=== PATIENT | female | born 1975 | race African-American/Black ===

== ENCOUNTER 2019-11-02 08:44 | Outpatient (CLI) | payer OTHER, SELFPAY ==
--- NOTE | ~2019-11-02 | MR_ITS ---
EXAMINATION: MR lumbar spine wo con DATE: 11/02/2019 09:47 INDICATION: Low back pain. TECHNIQUE: Magnetic resonance imaging (MRI) of the lumbar spine was performed without intravenous con trast. Sequences included sagittal T2-weighted FSE, sagittal T2-weighted FS FSE, sagittal T1-weighted FSE, and axial T2-weighted FSE. COMPARISON: Lumbar spine MRI 08/10/2012, radiographs 12/28/2016, chest 2 views 11/02/2012 FINDINGS: There is 12 degrees levoscoliosis of lumbar spine. S1 is a transitional segment. Vertebral body heights and intervertebral disc heights are normal. The distal spinal cord signal intensity is n ormal. The conus medullaris is at L1-L2. The following disc levels are specifically discussed: L1-L2: The disc does not extend beyond the endplate margin. There is mild bilateral facet joint osteo arthritis. There is no neural foraminal stenosis. There is no central canal stenosis. L2-L3: The disc does not extend beyond the endplate margin. There is moderate bilateral facet joint o steoarthritis. There is no neural foraminal stenosis. There is no central canal stenosis. L3-L4: The disc does not extend beyond the endplate margin. There is severe right and moderate left f acet joint osteoarthritis. There is mild bilateral neural foraminal stenosis. There is no central can al stenosis. L4-L5: There is a right foraminal protrusion. There is severe bilateral facet joint osteoarthritis. T here is mild bilateral neural foraminal stenosis. There is no central canal stenosis. L5-S1: The disc does not extend beyond the endplate margin. There is moderate right and severe left f acet joint osteoarthritis. There is mild bilateral neural foraminal stenosis. There is no central can al stenosis. IMPRESSION: 1. Mild lumbar spondylosis, stable from 08/10/2012. Reviewed, dictated and finalized at location A. OELECTRONICS ASSEMBLER
== END 2019-11-02 08:45 | disposition home or self-care (01) ==
PROVIDERS: Visit Provider Psychiatry & Neurology Neurology
DX: M47.896 Other spondylosis, lumbar region (principal)
CPT/HCPCS: 72148

== ENCOUNTER 2019-11-09 14:03 | Outpatient (CLI) | payer OTHER, SELFPAY ==
--- NOTE | ~2019-11-09 | US_ITS ---
EXAMINATION: US art doppler w press LE SAÚL DATE: 11/09/2019 15:16 INDICATION: Lower limb edema. Numbness and tingling in the legs. TECHNIQUE: Segmental pressures and plethysmographic and Doppler waveforms of the brachial and lower e xtremity arteries were obtained. COMPARISON: None. FINDINGS: Right and left brachial artery pressures were too high to measure. The right lower limb pressures could not be measured. Arterial Doppler waveforms are at least triphas ic from common femoral artery to the ankle. The left lower limb pressures could not be measured. Arterial Doppler waveforms are at least triphasi c from common femoral artery to the ankle. IMPRESSION: 1. Brachial pressures too high to measure. The patient was encouraged to go to the emergency departme nt. She refused the [facility] emergency department and stated she would go to [facility]. 2. Normal arterial waveforms in the lower limbs, but pressures could not be measured. Reviewed, dictated and finalized at location A. URIZER IMPRESSION: 1. Brachial pressures too high to measure. The patient was encouraged to go to the emergency department. She refused the [facility] emergency departmen t and stated she would go to [facility]. 2. Normal arterial waveforms in the lower limbs, but pressures could not be yesy sured.
== END 2019-11-09 14:04 | disposition home or self-care (01) ==
PROVIDERS: Visit Provider Psychiatry & Neurology Neurology
DX: R60.9 Edema, unspecified (principal)
CPT/HCPCS: 93923

== ENCOUNTER 2020-07-13 15:28 | Emergency (ER) | payer OTHER, SELFPAY ==
--- NOTE | ~2020-07-13 | XR_ITS ---
XR hip LT min 2V DATE: 07/13/2020 16:04 INDICATION: Fall. Left hip pain. TECHNIQUE: AP, lateral, crosstable lateral views of left hip COMPARISON: 06/07/2017 left hip FINDINGS: No fracture or dislocation, avascular necrosis or bone destruction. Mild left hip osteoarth ritis. IMPRESSION: Mild left hip osteoarthritis Reviewed, dictated and finalized at location A.
--- NOTE | 2020-07-13 15:30 | ED.GENADULT ---
HPI - General Adult General Chief complaint: Extremity Problem,Nontraumatic Stated complaint: Left Hip Pain Time Seen by Provider: 07/13/20 15:30 Source: patient Mode of arrival: ambulatory Limitations: no limitations History of Present Illness HPI narrative: 45-year-old female patient presents to the [facility] with complaints of left hip pain. Patient states about 3 days ago she slipped and fell landing on her left hip onto some hardwood. Patient states that since then she has been having pain when walking and states it hurts mostly when she is laying down at night trying to turn her when she goes to try and sit down on the toilet. Patient states that she did break her jaw and so she has had some Vicodin at home for the jaw pain that she has been taking. Patient denies any numbness or tingling down the leg. Denies any loss of bowel or bladder control. Patient states that she does have chronic low back pain due to a broken tailbone in the past that the pain that she has there is not from her recent fall. Related Data Home Medications Medication Instructions Recorded Confirmed alprazolam 1 mg PO DIRECTED 07/13/20 07/13/20 amlodipine 10 mg PO DAILY 07/13/20 07/13/20 buspirone 10 mg PO DAILY 07/13/20 07/13/20 clonidine HCl 0.1 mg PO DAILY 07/13/20 07/13/20 ergocalciferol (vitamin D2) 1,250 mcg PO DAILY 07/13/20 07/13/20 [Vitamin D2] hydrocodone-acetaminophen 1 tablet PO DIRECTED 07/13/20 07/13/20 olanzapine 5 mg PO DIRECTED 07/13/20 07/13/20 Allergies Allergy/AdvReac Type Severity Reaction Status Date / Time codeine Allergy Unknown ITCHING Verified 07/13/20 15:31 papaya Allergy Unknown ITCHING Verified 07/13/20 15:31 tramadol Allergy Unknown Nausea Verified 07/13/20 15:31 Review of Systems Review of Systems: Narrative: CONSTITUTIONAL: Denies fever, chills, or sweats. EYES: Denies visual changes, redness, or discharge. ENT: Denies rhinorrhea, congestion, sore throat, or otalgia. CARDIOVASCULAR: Denies chest pain, palpitations, or edema. RESPIRATORY: Denies cough or dyspnea. GASTROINTESTINAL: Denies abdominal pain, nausea, vomiting, or diarrhea. GENITOURINARY: Denies dysuria or hematuria. SKIN: Denies rash or itching. MUSCULOSKELETAL: Denies back pain, joint pain, or myalgia. Positive left hip pain NEUROLOGIC: Denies headache, numbness, or weakness. PSYCHIATRIC: Denies anxiety or depression. [facility] Past Medical History Medical History Anxiety Arthritis Asthma Bronchitis Depression Emphysema, unspecified GERD (gastroesophageal reflux disease) H/O: HTN (hypertension) Hypercholesteremia Peripheral neuropathy PTSD (post-traumatic stress disorder) Sleep apnea Surgical History Surgical History History of hysterectomy History of tonsillectomy Hx of tubal ligation Family History Family History Mother Hypertension Social History Social History Smoking status: Former smoker Alcohol intake: current Comments At the time of my signature I agree with nursing past medical history, surgical, social, and family history. There is no relevant family history pertinent to the presenting complaint. Exam Narrative: Exam Narrative: GENERAL: Well-appearing, well-nourished, and in no acute distress. HEAD: Normocephalic, atraumatic. EYES: PERRLA and EOMI. ENT: Nares clear, no rhinorrhea or epistaxis. Mucous membranes moist. NECK: Supple. No lymphadenopathy CHEST: Clear to auscultation. No respiratory distress. HEART: Regular rate and rhythm. No murmur heard. Normal peripheral pulses. ABDOMEN: Soft, nontender, nondistended, normal active bowel sounds. EXTREMITIES: Patient is able to ambulate with difficulty with pain, and limp left hip. No surface trauma, ecchymosis. no erythema, warmth. No deform
[2020-07-13 15:41] VITALS: BP 158/90; PULSE 73; RESP 16; TEMP 36.6; O2SAT 100
== END 2020-07-13 16:20 | disposition home or self-care (01) ==
PROVIDERS: Emergency Provider Nurse Practitioner Family
DX: M25.552 Pain in left hip (principal); M16.12 Unilateral primary osteoarthritis, left hip; Z87.891 Personal history of nicotine dependence; F41.9 Anxiety disorder, unspecified; M19.90 Unspecified osteoarthritis, unspecified site; J45.909 Unspecified asthma, uncomplicated; F32.9 Major depressive disorder, single episode, unspecified; K21.9 Gastro-esophageal reflux disease without esophagitis; I10 Essential (primary) hypertension; E78.00 Pure hypercholesterolemia, unspecified; G47.30 Sleep apnea, unspecified; G62.9 Polyneuropathy, unspecified
CPT/HCPCS: 73502; 99213; G0463

== ENCOUNTER 2020-08-09 06:35 | Outpatient (NON) | payer OTHER, SELFPAY ==
[2020-08-10 01:03] LABS: SARS-CoV-2 RNA PCR Negative
== END 2020-08-09 06:36 ==
LOC: ANHCOVIDDT 06:35
PROVIDERS: Visit Provider Physician Assistant
DX: Z20.828 Contact with and (suspected) exposure to other viral communicable diseases (principal)
CPT/HCPCS: 87635; C9803; U0003

== ENCOUNTER → 2021-01-15 06:44 | Outpatient (CLI) | payer OTHER, SELFPAY ==
[2021-01-15 18:26] LABS: SARS-CoV-2 RNA PCR Negative
== END ==
PROVIDERS: PCP Physician Assistant; Visit Provider Physician Assistant
DX: Z20.822 Contact with and (suspected) exposure to COVID-19 (principal); R09.89 Other specified symptoms and signs involving the circulatory and respiratory systems
CPT/HCPCS: C9803; U0003; U0005

== ENCOUNTER 2021-01-17 08:07 | Emergency (ER) | payer OTHER, SELFPAY ==
--- NOTE | ~2021-01-17 | XR_ITS ---
EXAMINATION: XR knee RT 3V DATE: 01/17/2021 08:33 INDICATION: Right knee pain. TECHNIQUE: 4 views of right knee were obtained. COMPARISON: Right knee radiographs 09/01/2019 FINDINGS: Bone alignment is normal. No fracture. There is mild tricompartmental osteoarthritis. No kn ee joint effusion. IMPRESSION: 1. Mild right knee osteoarthritis. Reviewed, dictated and finalized at location D.
[2021-01-17 08:18] VITALS: BP 132/79; PULSE 66; RESP 16; TEMP 36.4; O2SAT 100
--- NOTE | 2021-01-17 08:51 | ED.URI ---
HPI - URI/Sore Throat General Stated Complaint: Righ Knee Pain Related Data Home Medications Medication Instructions Recorded Confirmed alprazolam 1 mg PO DIRECTED 07/13/20 07/13/20 amlodipine 10 mg PO DAILY 07/13/20 07/13/20 buspirone 10 mg PO DAILY 07/13/20 07/13/20 clonidine HCl 0.1 mg PO DAILY 07/13/20 07/13/20 ergocalciferol (vitamin D2) 1,250 mcg PO DAILY 07/13/20 07/13/20 [Vitamin D2] olanzapine 5 mg PO DIRECTED 07/13/20 07/13/20 Allergies Allergy/AdvReac Type Severity Reaction Status Date / Time codeine Allergy Unknown ITCHING Verified 07/13/20 15:31 papaya Allergy Unknown ITCHING Verified 07/13/20 15:31 tramadol Allergy Unknown Nausea Verified 07/13/20 15:31 [facility] Past Medical History Medical History Anxiety Arthritis Asthma Bronchitis Depression Emphysema, unspecified GERD (gastroesophageal reflux disease) H/O: HTN (hypertension) Hypercholesteremia Peripheral neuropathy PTSD (post-traumatic stress disorder) Sleep apnea Surgical History Surgical History History of hysterectomy History of tonsillectomy Hx of tubal ligation Family History Family History Mother Hypertension Social History Social History Smoking status: Former smoker Alcohol intake: current Course Vital Signs Vital signs: Vital Signs Temperature 97.6 F 01/17/21 08:18 Pulse Rate 66 01/17/21 08:18 Respiratory Rate 16 01/17/21 08:18 Blood Pressure 132/79 01/17/21 08:18 Pulse Oximetry 100 01/17/21 08:18 Temperature 97.6 F 01/17/21 08:18 Pulse Rate 66 01/17/21 08:18 Respiratory Rate 16 01/17/21 08:18 Blood Pressure 132/79 01/17/21 08:18 Pulse Oximetry 100 01/17/21 08:18 Discharge Plan Discharge Clinical Impression: Injury of knee, right Qualifiers: Encounter type: initial encounter Qualified Code(s): S89.91XA - Unspecified injury of right lower leg, initial encounter Patient Disposition: Home, Self-Care Condition: Stable Instructions: Knee Pain (ED) Additional Instructions: Your x-ray is negative for anything concerning today. Continue Aleve or ibuprofen at home for pain. Continue ice and elevation. Follow-up with your PCP in 1 to 2 weeks if symptoms are not improving. Your blood pressure was elevated above 120/80 today at Urgent Care. This puts you above the threshold for follow up. Please schedule a followup visit with your personal physician as soon as possible, for further evaluation and treatment. Even blood pressure exceeding 120/80 may indicate pre-hypertension. Patient Language: Belarusian Prescriptions: No Action clonidine HCl 0.1 mg tablet 0.1 mg PO DAILY RF: 0 alprazolam 1 mg tablet 1 mg PO DIRECTED RF: 0 olanzapine 5 mg tablet 5 mg PO DIRECTED RF: 0 amlodipine 10 mg tablet 10 mg PO DAILY RF: 0 buspirone 10 mg tablet 10 mg PO DAILY RF: 0 ergocalciferol (vitamin D2) [Vitamin D2] 1,250 mcg (50,000 unit) capsule 1,250 mcg PO DAILY RF: 0 hydrocodone-acetaminophen 7.5-325 mg tablet 1 tablet PO Q8H PRN (Reason: pain) Qty: 40 RF: 0 Follow-up/Referrals: UNKNOWN,DOCTOR [Primary Care Provider] - Time of Disposition: 08:53
--- NOTE | 2021-01-17 08:57 | ED.LOWEXIN ---
HPI - Extremity Injury (Lower) General Chief Complaint: Extremity Injury, Lower Stated Complaint: Righ Knee Pain Time Seen by Provider: 01/17/21 08:21 Source: patient Mode of arrival: ambulatory Limitations: no limitations History of Present Illness HPI Narrative: Patient presents today complaining of right knee pain. She slipped on a rug yesterday and fell onto her right knee. States the pain occasionally radiates to the posterior knee and up the posterior thigh. She currently rates her pain 4/10. Reports there is a small area to the patella that is numb to the touch. She has been taking ibuprofen and applying ice with relief. She also reports she took a CBD bath . Pain does increase with ambulation. Related Data Home Medications Medication Instructions Recorded Confirmed alprazolam 1 mg PO DIRECTED 07/13/20 07/13/20 amlodipine 10 mg PO DAILY 07/13/20 07/13/20 buspirone 10 mg PO DAILY 07/13/20 07/13/20 clonidine HCl 0.1 mg PO DAILY 07/13/20 07/13/20 ergocalciferol (vitamin D2) 1,250 mcg PO DAILY 07/13/20 07/13/20 [Vitamin D2] olanzapine 5 mg PO DIRECTED 07/13/20 07/13/20 Allergies Allergy/AdvReac Type Severity Reaction Status Date / Time codeine Allergy Unknown ITCHING Verified 01/17/21 09:12 papaya Allergy Unknown ITCHING Verified 01/17/21 09:12 tramadol Allergy Unknown Nausea Verified 01/17/21 09:12 Review of Systems Review of Systems: Narrative: CONSTITUTIONAL: Denies body aches, fever, chills, or sweats. EYES: Denies visual changes, redness, or discharge. ENT: Denies rhinorrhea, congestion, sore throat, or otalgia. CARDIOVASCULAR: Denies chest pain, palpitations, or edema. RESPIRATORY: Denies cough or dyspnea. GASTROINTESTINAL: Denies abdominal pain, nausea, vomiting, or diarrhea. GENITOURINARY: Denies dysuria or hematuria. SKIN: Denies rash, itching, or wounds. MUSCULOSKELETAL: Denies back pain, or myalgia.+ Right knee injury NEUROLOGIC: Denies headache, tingling, or weakness. + Area of numbness to the right knee PSYCH: Denies depression or anxiety. [facility] Past Medical History Medical History Anxiety Arthritis Asthma Bronchitis Depression Emphysema, unspecified GERD (gastroesophageal reflux disease) H/O: HTN (hypertension) Hypercholesteremia Peripheral neuropathy PTSD (post-traumatic stress disorder) Sleep apnea Surgical History Surgical History History of hysterectomy History of tonsillectomy Hx of tubal ligation Family History Family History Mother Hypertension Social History Social History Smoking status: Former smoker Alcohol intake: current Comments At time of signature, I have reviewed and agree with nursing past medical, surgical, social and family history unless otherwise noted. Please see nursing chart for further information. There is no relevant family history pertinent to the presenting complaint Exam Narrative: Exam Narrative: GENERAL: Well-appearing, well-nourished, and in no acute distress. HEAD: Normocephalic, atraumatic. EYES: EOMI. No redness or drainage. Conjunctivae normal. ENT: Mucous membranes pink and moist. NECK: Normal AROM. Supple. No lymphadenopathy. CHEST: No respiratory distress. EXTREMITIES: Right knee: Tenderness about the right knee joint. No bony tenderness to the patella. No edema noted. Patient does have some superficial numbness noted to the patella area. Distal sensation intact. Capillary refill normal. AROM full with mild increased pain. SKIN: Warm, dry, no rash. Capillary refill normal. Normal skin turgor. NEURO: No focal deficits. Alert and oriented x3. Gait steady. PSYCH: Normal affect. No signs of depression or anxiety. Course Vital Signs Vital signs: Vital Signs Temperature 97.6 F 01/17/
== END 2021-01-17 09:10 | disposition home or self-care (01) ==
PROVIDERS: Emergency Provider Nurse Practitioner
DX: S89.91XA Unspecified injury of right lower leg, initial encounter (principal); W18.09XA Striking against other object with subsequent fall, initial encounter; M19.90 Unspecified osteoarthritis, unspecified site; K21.9 Gastro-esophageal reflux disease without esophagitis; I10 Essential (primary) hypertension; E78.00 Pure hypercholesterolemia, unspecified; G62.9 Polyneuropathy, unspecified; G47.30 Sleep apnea, unspecified; F41.9 Anxiety disorder, unspecified; F32.9 Major depressive disorder, single episode, unspecified; Z87.891 Personal history of nicotine dependence
CPT/HCPCS: 73562; 99213; G0463

== ENCOUNTER → 2021-04-25 06:50 | Outpatient (CLI) | payer OTHER, SELFPAY ==
[2021-04-25 18:53] LABS: SARS-CoV-2 RNA PCR Negative
== END ==
PROVIDERS: PCP Physician Assistant; Visit Provider Physician Assistant
DX: Z20.822 Contact with and (suspected) exposure to COVID-19 (principal); B34.9 Viral infection, unspecified
CPT/HCPCS: C9803; U0003; U0005

== ENCOUNTER 2021-08-06 09:27 | Outpatient (CLI) | payer OTHER, SELFPAY ==
--- NOTE | ~2021-08-06 | US_ITS ---
EXAMINATION: US pelvic complete w TV DATE: 08/06/2021 10:40 INDICATION: Pelvic and perineal pain. Status post hysterectomy. Comparison:No prior studies for comparison. TECHNIQUE: Multiple transabdominal and endovaginal sonographic images of the pelvis performed. FINDINGS: The uterus is surgically absent. The right ovary measures 1.9 x 1.7 x 1.5 cm and the left o vary measures 2 x 1.5 x 1.7 cm. There are small follicles in each ovary. Normal doppler signal in artemio th ovaries. There is no free fluid in the pelvis. There are no abnormal masses seen on either side. IMPRESSION: 1. Unremarkable pelvic ultrasound post hysterectomy. Reviewed, dictated and finalized at location A. SHOP MANAGER
== END 2021-08-06 09:28 | disposition home or self-care (01) ==
PROVIDERS: PCP Physician Assistant; Visit Provider Physician Assistant
DX: R10.2 Pelvic and perineal pain (principal)
CPT/HCPCS: 76830; 76856

== ENCOUNTER 2022-02-19 09:00 | Outpatient (RCR) | payer OTHER, SELFPAY ==
--- NOTE | 2022-01-27 09:33 | PTOPEVAL ---
PHYSICAL THERAPY EVALUATION AND PLAN OF CARE 01-27-22 Thank you for referring Aamnda Orozco to [facility] for the diagnosis of low back pain. Amanda is scheduled to be seen for therapy? 2 x/week for 3 weeks. Treatment plan includes aquatic therapy, for the buoyancy effects of the water and allows for ease of movement and decrease stress to the spine. Please review, sign, date and return this plan of care ROSE. I agree with and certify that the following plan of care is medically necessary. Referring Physician Date Attending Provider: DARLINE Guo Past Medical History Source of Past Medical History Recalled from Previous Visit, Confirmed with Patient/Family Neurological History Hx Migraine Yes: on meds from neurologist Hx Other Neurological Disorders Yes: peripheral neuropathy in legs Cardiovascular History Hx Hypercholesterolemia Yes Hx Hypertension Yes: meds Hx Other Cardiac Disorders Yes: cardiac cath due to valve problems Respiratory History Hx Asthma Yes Hx Emphysema Yes Hx Sleep Apnea Yes Gastrointestinal History Hx Gastroesophageal Reflux Disease Yes Musculoskeletal History Hx Arthritis Yes: all over body Hx Back Pain Yes Hx Fractures Yes: nose jaw Hx Orthopedic Surgery Yes: rt hand, nose Hx Other Musculoskeletal Disorders Yes: chronic back, neck, B ankle and B shoulder pain Reproductive History Hx Tubal Ligation Yes Psychosocial History Hx Anxiety Yes Hx Depression Yes Hx Post Traumatic Stress Disorder Yes Other History Hx Other Medical Conditions Yes: obesity, has lost about 20# Evaluation Information Diagnosis low back pain Onset about one year Subjective Information gradual increase in back pain, Query Text:As Reported By Patient/ more since covid and at home Family more; when had therapy before, really liked the water and wants to do that again, cannot do land therapy--hurts too much and cannot tolerate it; has an inground pool at home and cannot use yet; likes the warm water, helps her back and loosens the muscles; frustrated about continued pain and no one understands how much it hurts her; Diagnostic Tests X-Rays For This Problem Yes: back xrays after fall
--- NOTE | 2022-02-03 10:49 | PCPTNOTE ---
Patient called & cancelled scheduled appointment this date due to transportation for her appointment was involved in an accident.
--- NOTE | 2022-02-19 09:22 | PCPTNOTE ---
pt did not show for today's reevaluation appt;
--- NOTE | 2022-03-10 10:11 | PCPTNOTE ---
PHYSICAL THERAPY DISCHARGE REPORT 03-10-22 Attending Provider: DARLINE Guo Patient:Amanda Orozco Date of :1975 Ms. Orozco has received 4 PT sessions, from January 27 to , for the diagnosis of low back pain. She called and canceled one appointment and did not show for one appointment; She will be discharged at this time. The goals were not addressed. Thank you for referring this patient to [facility]. Please review, sign, date and return this discharge summary ROSE. I have been updated about the patient's current status and I agree with discharge from the above service at this time. Referring Physician Date
== END 2022-03-10 14:39 | disposition home or self-care (01) ==
LOC: ANHPT 09:00
PROVIDERS: PCP Physician Assistant; Visit Provider Physician Assistant
DX: M54.50 Low back pain, unspecified (principal)
CPT/HCPCS: 97113; 97161

== ENCOUNTER 2022-03-23 12:11 | Emergency (ER) | payer OTHER, SELFPAY ==
[2022-03-23 12:30] VITALS: BP 139/85; PULSE 97; RESP 20; TEMP 36.7; O2SAT 98
--- NOTE | 2022-03-23 12:31 | ED.DENTAL ---
HPI - Dental/Oral General Chief complaint: Dental/Oral Stated complaint: Tooth Pain Time Seen by Provider: 03/23/22 12:31 Source: patient Mode of arrival: ambulatory History of Present Illness HPI Narrative: 46-year-old female presented for complaint of right upper dental pain for about 3 days. States she thinks she has a dental abscess, she has had this in the past. She endorses something popped inside her mouth and she felt drainage with foul taste at the tooth. She was unable to get into the dentist for about 2 months. She states she was told it needed to be pulled but elected to only have the cavity filled at her last appointment. She currently denies fever, nausea, vomiting. She states pain level is 0 at this time, but is worse at night. Also states she has a skin lesion to left cheek that swells at times. MD Complaint: tooth pain Related Data Home Medications Medication Instructions Recorded Confirmed alprazolam 1 mg tablet 1 mg PO DIRECTED 07/13/20 03/23/22 amlodipine 10 mg tablet 10 mg PO DAILY 07/13/20 03/23/22 buspirone 10 mg tablet 10 mg PO DAILY 07/13/20 03/23/22 clonidine HCl 0.1 mg tablet 0.1 mg PO DAILY 07/13/20 03/23/22 ergocalciferol (vitamin D2) 1,250 1,250 mcg PO DAILY 07/13/20 03/23/22 mcg (50,000 unit) capsule (Vitamin D2) olanzapine 5 mg tablet 5 mg PO DIRECTED 07/13/20 03/23/22 albuterol sulfate 90 mcg/actuation 2 inh inhalation DIRECTED 03/23/22 03/23/22 aerosol inhaler fluticasone propionate 110 2 inh inhalation DAILY 03/23/22 03/23/22 mcg/actuation HFA aerosol inhaler (Flovent HFA) gabapentin 400 mg capsule 1 cap PO DIRECTED 03/23/22 03/23/22 hydrochlorothiazide 25 mg tablet 1 tablet PO DAILY 03/23/22 03/23/22 losartan 100 mg tablet 1 tablet PO DAILY 03/23/22 03/23/22 Allergies Allergy/AdvReac Type Severity Reaction Status Date / Time codeine Allergy Unknown ITCHING Verified 03/23/22 12:16 papaya Allergy Unknown ITCHING Verified 03/23/22 12:16 tramadol Allergy Unknown Nausea Verified 03/23/22 12:16 Review of Systems Review of Systems: CONSTITUTIONAL: Denies body aches, fever, chills ENT: Denies rhinorrhea, congestion, sore throat, or otalgia. Reports dental pain CARDIOVASCULAR: Denies chest pain, palpitations RESPIRATORY: Denies cough or dyspnea. SKIN: Denies rash, itching, or wounds. MUSCULOSKELETAL: Denies myalgia. NEUROLOGIC: Denies headache, numbness, tingling, or weakness. [facility] Past Medical History Medical History Anxiety Arthritis Asthma Bronchitis Depression Emphysema, unspecified GERD (gastroesophageal reflux disease) H/O: HTN (hypertension) Hypercholesteremia Peripheral neuropathy PTSD (post-traumatic stress disorder) Sleep apnea Surgical History Surgical History History of hysterectomy History of tonsillectomy Hx of tubal ligation Family History Family History Mother Hypertension Social History Social History Smoking status: Current every day smoker Alcohol intake: former Comments At time of signature, I have reviewed and agree with nursing past medical, surgical, social and family history unless otherwise noted. Please see nursing chart for further information. There is no relevant family history pertinent to the presenting complaint Exam Narrative: GENERAL: Appears in pain; no acute distress. Talkative HEAD: Normocephalic, atraumatic. EYES: EOMI. No redness or drainage. Conjunctivae normal. ENT: Dental pain location of Mucous membranes pink and moist. CHEST: No respiratory distress. Clear to auscultation. HEART: Regular rate and rhythm. No murmur appreciated. SKIN: Warm, dry; Left cheek with round lesion approx 3mm diameter no active drainage or fluctuance; Normal skin turgor. NEURO: No f
== END 2022-03-23 12:54 | disposition home or self-care (01) ==
PROVIDERS: Emergency Provider Nurse Practitioner Family; PCP Physician Assistant
DX: K04.7 Periapical abscess without sinus (principal); L98.9 Disorder of the skin and subcutaneous tissue, unspecified; M19.90 Unspecified osteoarthritis, unspecified site; K21.9 Gastro-esophageal reflux disease without esophagitis; G62.9 Polyneuropathy, unspecified; E78.00 Pure hypercholesterolemia, unspecified; I10 Essential (primary) hypertension; G47.30 Sleep apnea, unspecified; J45.909 Unspecified asthma, uncomplicated; F41.9 Anxiety disorder, unspecified; F32.9 Major depressive disorder, single episode, unspecified
CPT/HCPCS: 99213; G0463

== ENCOUNTER 2022-04-13 14:52 | Emergency (ER) | payer OTHER, SELFPAY ==
[2022-04-13 15:08] VITALS: BP 116/61; PULSE 75; RESP 16; TEMP 36.8; O2SAT 98
--- NOTE | 2022-04-13 15:29 | ED.GENADULT ---
HPI - General Adult General Chief complaint: Extremity Problem,Nontraumatic Stated complaint: Swolle Legs Time Seen by Provider: 04/13/22 15:29 Source: patient Mode of arrival: ambulatory Limitations: no limitations History of Present Illness HPI narrative: 46 y/o female presented for c/o bilateral lower extremity swelling intermittently since 03/27/22. Denies associated sob, fatigue, chest pain, palpitations, decreased urinary output, nausea or vomiting. States her PCP instructed her to go to the ER. Taking hctz. Denies salt increase. Denies hx CHF. Related Data Home Medications Medication Instructions Recorded Confirmed alprazolam 1 mg tablet 1 mg PO DIRECTED 07/13/20 04/13/22 amlodipine 10 mg tablet 10 mg PO DAILY 07/13/20 04/13/22 buspirone 10 mg tablet 10 mg PO DAILY 07/13/20 04/13/22 clonidine HCl 0.1 mg tablet 0.1 mg PO DAILY 07/13/20 04/13/22 ergocalciferol (vitamin D2) 1,250 1,250 mcg PO DAILY 07/13/20 04/13/22 mcg (50,000 unit) capsule (Vitamin D2) olanzapine 5 mg tablet 5 mg PO DIRECTED 07/13/20 04/13/22 albuterol sulfate 90 mcg/actuation 2 inh inhalation DIRECTED 03/23/22 04/13/22 aerosol inhaler fluticasone propionate 110 2 inh inhalation DAILY 03/23/22 04/13/22 mcg/actuation HFA aerosol inhaler (Flovent HFA) gabapentin 400 mg capsule 1 cap PO DIRECTED 03/23/22 04/13/22 hydrochlorothiazide 25 mg tablet 1 tablet PO DAILY 03/23/22 04/13/22 losartan 100 mg tablet 1 tablet PO DAILY 03/23/22 04/13/22 Allergies Allergy/AdvReac Type Severity Reaction Status Date / Time codeine Allergy Unknown ITCHING Verified 04/13/22 15:14 papaya Allergy Unknown ITCHING Verified 04/13/22 15:14 tramadol Allergy Unknown Nausea Verified 04/13/22 15:14 Review of Systems Review of Systems: CONSTITUTIONAL: Denies body aches, fever, chills, or sweats. EYES: Denies visual changes, redness, or discharge. ENT: Denies rhinorrhea, congestion, sore throat, or otalgia. CARDIOVASCULAR: Denies chest pain, palpitations, or edema. RESPIRATORY: Denies cough or dyspnea. GASTROINTESTINAL: Denies abdominal pain, nausea, vomiting, or diarrhea. GENITOURINARY: Denies dysuria or hematuria. SKIN: Denies rash, itching, or wounds. MUSCULOSKELETAL: Denies back pain, joint pain, or myalgia. NEUROLOGIC: Denies headache, numbness, tingling, or weakness. PSYCH: Denies depression or anxiety. All systems reviewed & are unremarkable except as noted in HPI and below PMFSH Past Medical History Medical History Anxiety Arthritis Asthma Bronchitis Depression Emphysema, unspecified GERD (gastroesophageal reflux disease) H/O: HTN (hypertension) Hypercholesteremia Peripheral neuropathy PTSD (post-traumatic stress disorder) Sleep apnea Surgical History Surgical History History of hysterectomy History of tonsillectomy Hx of tubal ligation Family History Family History Mother Hypertension Social History Social History Smoking status: Current every day smoker Alcohol intake: former Comments At time of signature, I have reviewed and agree with nursing past medical, surgical, social and family history unless otherwise noted. Please see nursing chart for further information. There is no relevant family history pertinent to the presenting complaint Exam Narrative: GENERAL: Well-appearing EYES: EOMI. Conjunctivae normal. ENT: Mucous membranes pink and moist. CHEST: No respiratory distress. Clear to auscultation. HEART: Regular rate and rhythm. No murmur appreciated. Normal peripheral pulses. ABDOMEN: Soft, nontender, nondistended, normal active bowel sounds. EXTREMITIES: Normal range of motion. Approx 3+ ankle and pedal edema bilaterally up to mid calf, skin is tight and tender, no redness or open wou
== END 2022-04-13 16:05 | disposition home or self-care (01) ==
PROVIDERS: Emergency Provider Nurse Practitioner Family; PCP Physician Assistant
DX: R22.43 Localized swelling, mass and lump, lower limb, bilateral (principal); F17.200 Nicotine dependence, unspecified, uncomplicated; M19.90 Unspecified osteoarthritis, unspecified site; K21.9 Gastro-esophageal reflux disease without esophagitis; I10 Essential (primary) hypertension; E78.00 Pure hypercholesterolemia, unspecified; G47.30 Sleep apnea, unspecified; G62.9 Polyneuropathy, unspecified; F41.9 Anxiety disorder, unspecified; F32.A Depression, unspecified; J45.909 Unspecified asthma, uncomplicated; J43.9 Emphysema, unspecified
CPT/HCPCS: 99212; G0463

== ENCOUNTER 2022-05-24 08:21 | Emergency (ER) | payer OTHER, SELFPAY ==
[2022-05-24 08:32] VITALS: BP 151/95; PULSE 114; RESP 16; TEMP 37.2; O2SAT 99
[2022-05-24 08:33] VITALS: BP 151/95; PULSE 114; RESP 16; TEMP 37.2; O2SAT 99
--- NOTE | 2022-05-24 09:02 | ED.DENTAL ---
HPI - Dental/Oral General Chief complaint: Dental/Oral Stated complaint: gum pain Source: patient Mode of arrival: ambulatory Limitations: no limitations History of Present Illness HPI Narrative: 47 year old female presents to [facility] with complaints of right upper tooth pain since yesterday. Patient reports that she has had dental pain and swelling since getting a deep clean to her teeth at her dental office in 02/2022. Patient was evaluated here in late February and given Penicillin 500mg BID X 10 days for a dental abscess. Patient reports that she had a low grade fever last night. Patient denies headache, dizziness, nausea or vomiting. MD Complaint: tooth pain Location: Tooth # (4) Onset (ago): day(s) (1) Duration: constant Relieving factors: nothing Exacerbating factors: chewing Related Data Home Medications Medication Instructions Recorded Confirmed alprazolam 1 mg tablet 1 mg PO DIRECTED 07/13/20 05/24/22 amlodipine 10 mg tablet 10 mg PO DAILY 07/13/20 05/24/22 buspirone 10 mg tablet 10 mg PO DAILY 07/13/20 05/24/22 clonidine HCl 0.1 mg tablet 0.1 mg PO DAILY 07/13/20 05/24/22 ergocalciferol (vitamin D2) 1,250 1,250 mcg PO DAILY 07/13/20 05/24/22 mcg (50,000 unit) capsule (Vitamin D2) olanzapine 5 mg tablet 5 mg PO DIRECTED 07/13/20 05/24/22 albuterol sulfate 90 mcg/actuation 2 inh inhalation DIRECTED 03/23/22 05/24/22 aerosol inhaler fluticasone propionate 110 2 inh inhalation DAILY 03/23/22 05/24/22 mcg/actuation HFA aerosol inhaler (Flovent HFA) gabapentin 400 mg capsule 1 cap PO DIRECTED 03/23/22 05/24/22 hydrochlorothiazide 25 mg tablet 1 tablet PO DAILY 03/23/22 05/24/22 losartan 100 mg tablet 1 tablet PO DAILY 03/23/22 05/24/22 sertraline 50 mg tablet 50 mg PO DAILY 05/24/22 05/24/22 Allergies Allergy/AdvReac Type Severity Reaction Status Date / Time papaya Allergy Unknown ITCHING Verified 05/24/22 08:32 Review of Systems Constitutional: Constitutional: Denies chills, Denies fatigue and Denies fever(s) ENT: Denies vertigo and Denies dizziness Comments: right upper tooth pain and right facial cheek swelling Cardiovascular: Cardiovascular: Denies chest pain Respiratory: Respiratory: Denies cough, Denies dyspnea and Denies wheezing Gastrointestinal: Gastrointestinal: Denies diarrhea, Denies nausea and Denies vomiting Integumentary/Breasts: Skin/Breast: Denies rash PMFSH Past Medical History Medical History Anxiety Arthritis Asthma Bronchitis Depression Emphysema, unspecified GERD (gastroesophageal reflux disease) H/O: HTN (hypertension) Hypercholesteremia Peripheral neuropathy PTSD (post-traumatic stress disorder) Sleep apnea Surgical History Surgical History History of hysterectomy History of tonsillectomy Hx of tubal ligation Family History Family History Mother Hypertension Social History Social History Smoking status: Current every day smoker Alcohol intake: former Exam Const: General: healthy appearing Nutritional Appearance: well nourished Orientation/consciousness: patient oriented x3 Limitations: no limitations HENMT: Mouth: Yes Normal oral and palatal mucosa present, Yes moist mucous membranes and Yes Abnormal oral and palatal mucosa present Teeth and gingiva: abnormal tooth and associated gingiva upper right tender Throat: uvula midline Other: pain and swelling noted surrounding tooth # 4; THere is no obvious abscess noted. There is also mild swelling noted to right facial cheek Neck: Neck: normal visual inspection Resp: Effort & Inspection: normal respiratory effort and not labored Auscultation: clear to auscultation bilaterally Cardio: Rate: regular rate Rhythm: regular rhythm Heart sounds: no murmurs Skin:
== END 2022-05-24 09:23 | disposition home or self-care (01) ==
PROVIDERS: Emergency Provider Nurse Practitioner Family
DX: K08.89 Other specified disorders of teeth and supporting structures (principal); F17.200 Nicotine dependence, unspecified, uncomplicated; M19.90 Unspecified osteoarthritis, unspecified site; J45.909 Unspecified asthma, uncomplicated; K21.9 Gastro-esophageal reflux disease without esophagitis; I10 Essential (primary) hypertension; E78.00 Pure hypercholesterolemia, unspecified; G62.9 Polyneuropathy, unspecified; G47.30 Sleep apnea, unspecified; J43.9 Emphysema, unspecified; F41.9 Anxiety disorder, unspecified; F32.A Depression, unspecified
CPT/HCPCS: 99213; G0463

== ENCOUNTER 2022-07-28 15:30 | Outpatient (RCR) | payer OTHER, SELFPAY ==
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
--- NOTE | 2022-07-28 17:00 | PTOPREEVAL ---
Assessment and note entered by Xu Rea, PT Evaluation Information Assessment Status Re-evaluation Diagnosis low back pain Onset 2014 Subjective Information Patient reports she has been faithfully doing her exercises and can do her TENS unit at home. She has bought a romanian ball and finds relief from back pain when she does that. Unfortunately she keeps on having falls on her knees and is still a big fall risk. Reported Pain Level Pain Score 3,3: Self Report Assessment PT Clinical Summary Patient is a 47 year old patient coming to the clinic for low back pain. She has made 8 visits since initial evaluation on 05/25/22. Was unable to come in for May. secondary to COVID and knee pain. Has been showing good form with exercises and participating in aquatic and land based therapy. Patient appears to be wanting to make improvements, but secondary to all of the issues from her back I think it would be prudent to get an MRI along with continuing physical therapy. Plan of Care Interventions Aquatic Therapy,Electrical Stimulation,Gait Training,Hot Pack/Cold Pack,Manual Therapy,Neuro Re-education,Patient/Caregiver Education,Therapeutic Activities,Therapeutic Exercise,Ultrasound PT Services Indicated Yes Treatment Frequency and 2x/wk for 4 weeks Duration These treatments will address the objective and functional deficits as defined above. The patient will be advanced safely and appropriately in order for the patient to progress towards his/her prior level of function. Additional exercises will be introduced and as well as a comprehensive home exercise program upon discharge, if needed, ?to ensure carryover of functional gains achieved in the clinic. This treatment plan has been reviewed and agreement upon by the patient.
--- NOTE | 2022-10-01 14:40 | PCPTNOTE ---
Admitting Provider: Attending Provider: Lizeth Lima, DARLINE Patient:Amanda Orozco Date of :1975 Patient has not returned for any further treatments since 07/28/2022, therefore (he/she) will be discharged at this time. Patient?s initial visit was on 06/04/2022 10:30 and (he/she) had a total of 8___ visits. Since that last visit she has received new orders for more physical therapy. The goals have been partially met. Thank you for referring this patient to [facility]. Please review, sign, date and return this discharge summary ROSE. I have been updated about the patient's current status and I agree with discharge from the above service at this time. Referring Physician Date
== END 2022-09-02 23:59 | disposition home or self-care (01) ==
LOC: ANHPT 15:30
PROVIDERS: Referring Provider Physician Assistant; Visit Provider Physician Assistant
DX: M54.50 Low back pain, unspecified (principal)
CPT/HCPCS: 97014; 97110; 97113; 97162; 97530; G0283

== ENCOUNTER 2022-10-28 08:58 | Emergency (ER) | payer OTHER, SELFPAY ==
[2022-10-28 09:12] VITALS: BP 168/107; PULSE 109; RESP 16; TEMP 36.9; O2SAT 98
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
--- NOTE | 2022-10-30 11:01 | ED.DENTAL ---
HPI - Dental/Oral General Chief complaint: Dental/Oral Stated complaint: Dental Pain Time Seen by Provider: 10/28/22 09:14 Source: patient Mode of arrival: ambulatory Limitations: no limitations History of Present Illness HPI Narrative: 47 yo F presents with c/o R upper dental pain for several months. States she has been seen by a dentist for this issue. pt thinks a needle was left in her gums after a dental procedure. Followed up with another dentist and had panorex and was told maybe something there . pt has not followed up with her PCP to get additional imaging but states a one point the tip of the needle was coming out . Today she has pain and swelling. afebrile. Requesting antibiotic and tramadol. All systems reviewed and negative except as noted above. Related Data Home Medications Medication Instructions Recorded Confirmed alprazolam 1 mg tablet 1 mg PO DIRECTED 07/13/20 05/24/22 amlodipine 10 mg tablet 10 mg PO DAILY 07/13/20 05/24/22 buspirone 10 mg tablet 10 mg PO DAILY 07/13/20 05/24/22 clonidine HCl 0.1 mg tablet 0.1 mg PO DAILY 07/13/20 05/24/22 ergocalciferol (vitamin D2) 1,250 1,250 mcg PO DAILY 07/13/20 05/24/22 mcg (50,000 unit) capsule (Vitamin D2) olanzapine 5 mg tablet 5 mg PO DIRECTED 07/13/20 05/24/22 albuterol sulfate 90 mcg/actuation 2 inh inhalation DIRECTED 03/23/22 05/24/22 aerosol inhaler fluticasone propionate 110 2 inh inhalation DAILY 03/23/22 05/24/22 mcg/actuation HFA aerosol inhaler (Flovent HFA) gabapentin 400 mg capsule 1 cap PO DIRECTED 03/23/22 05/24/22 hydrochlorothiazide 25 mg tablet 1 tablet PO DAILY 03/23/22 05/24/22 losartan 100 mg tablet 1 tablet PO DAILY 03/23/22 05/24/22 sertraline 50 mg tablet 50 mg PO DAILY 05/24/22 05/24/22 Allergies Allergy/AdvReac Type Severity Reaction Status Date / Time papaya Allergy Unknown ITCHING Verified 05/24/22 08:32 Review of Systems Review of Systems: CONSTITUTIONAL: Denies fever, chills, or sweats. EYES: Denies visual changes, redness, or discharge. ENT: Denies rhinorrhea, congestion, sore throat, or otalgia. Reports right upper dental pain. CARDIOVASCULAR: Denies chest pain, palpitations, or edema. RESPIRATORY: Denies cough or dyspnea. GASTROINTESTINAL: Denies abdominal pain, nausea, vomiting, or diarrhea. GENITOURINARY: Denies dysuria or hematuria. SKIN: Denies rash or itching. MUSCULOSKELETAL: Denies back pain, joint pain, or myalgia. NEUROLOGIC: Denies headache, numbness, or weakness. PSYCHIATRIC: Denies anxiety or depression. All other systems reviewed are negative, except as documented in HPI. [facility] Past Medical History Medical History Anxiety Arthritis Asthma Bronchitis Depression Emphysema, unspecified GERD (gastroesophageal reflux disease) H/O: HTN (hypertension) Hypercholesteremia Peripheral neuropathy PTSD (post-traumatic stress disorder) Sleep apnea Surgical History Surgical History History of hysterectomy History of tonsillectomy Hx of tubal ligation Family History Family History Mother Hypertension Social History Social History Smoking status: Current every day smoker Alcohol intake: former Comments At time of signature, agree with nursing past medical, surgical, social and family history. There is no relevant family history pertinent to the presenting complaint. Exam Narrative: GENERAL: This is a well-nourished, well-developed patient, in no apparent distress. HEAD: normocephalic, atraumatic. EYES: PERRL. Sclera clear/white. Vision is grossly intact. EARS: External ears normal NOSE: External nose normal MOUTH: swelling and tenderness to gumline above tooth #4 and #5. no fluctuance. mild facial swelling noted. NECK: Neck supple, non-tender without lymphade
== END 2022-10-28 09:41 | disposition home or self-care (01) ==
PROVIDERS: Emergency Provider Nurse Practitioner Family
DX: K04.7 Periapical abscess without sinus (principal); F41.9 Anxiety disorder, unspecified; M19.90 Unspecified osteoarthritis, unspecified site; J45.909 Unspecified asthma, uncomplicated; F32.A Depression, unspecified; K21.9 Gastro-esophageal reflux disease without esophagitis; I10 Essential (primary) hypertension; G62.9 Polyneuropathy, unspecified
CPT/HCPCS: 99213; G0463

== ENCOUNTER 2022-10-29 08:00 | Outpatient (RCR) | payer OTHER, SELFPAY ==
--- NOTE | 2022-10-01 15:19 | PTOPEVAL1 ---
Assessment and note entered by Pat Hartmann, PT Evaluation Information Assessment Status Evaluation Diagnosis L knee pain and low back pain Onset April 2022 Subjective Information chronic pain in L knee- bone on bone; more pain since April; have fallen 3 times in past 2 months, knee hurts, gives out and fall down; afraid I will fall again; have anxiety and afraid to fall again; awhile back, dr wanted to do surgery on my knee, but insurance changed and not authorize surgery; to have MRI of back next week; continues to have back pain; Reported Pain Level Pain Score Self Report L knee Additional Pain Score Comments pain in past week 3-07/06 L knee, constant pain, shoots up lateral thigh; like under knee cap; increase pain with stairs; with sleeping gets stuck in bent position and cannot straighten it out; awaken 3-4x/night with pain in knee; use pillow between knees with sleeping; decrease pain with TENS, heat- use about 2x/day; use muscle cream- not really help anymore, pain is deeper in knee; have swelling in her knee; Assessment PT Clinical Summary Amanda has orders for low back and L knee pain; she wants to start on the knee treatment. A lumbar MRI is scheduled for next week. She reports chronic pain in her L knee and history includes L foot surgery, which still has pain. Decreased sleeping tolerance and walking. With the evaluation, she is guarded with the knee and would not allow me to touch her knee or look at it, would not remove her pants leg. She has decreased knee flexion and extension ROM and strength with pain; decreased walking tolerance with limp on L LE. Skilled PT services are indicated for modalities to decrease pain, therapeutic exercises to increase knee ROM and strength, with education for home exercise. Plan of Care Interventions Gait Training,Hot Pack/Cold Pack,Intermittent Compression,Manual Therapy,Neuro Re-education, Patient/Caregiver Education,Therapeutic Activities, Therapeutic Exercise,Ultrasound,Other Other Interventions taping PT Services Indicated Yes
--- NOTE | 2022-10-20 15:12 | PCPTNOTE ---
Patient did not show up for scheduled appointment this date. Called and spoke with Pt, She apologized I thought my appointment was tomorrow. Reminded Pt of upcoming appointment on 10/22/22 @07:30, she stated she would be there. This is Pt's first N/S.
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
--- NOTE | 2022-10-29 08:45 | PTOPPROG ---
Assessment and note entered by Pat Hartmann, PT Evaluation Information Assessment Status Progress Diagnosis L knee pain Onset April 2022 Subjective Information Amanda reports: she fell last week, getting up during night, knee gave out and she fell- ankle hurts from fall also; knee still giving her problems; to have MRI of back in 2 days; hurts really bad and have to move slow; use cane or wheeled walker; had problems with dental work, have infection and on antibiotics; does not want to do any more therapy on her knee, going to dr next week; does not want to start any therapy on her back--to have MRI in 2 days and wants the results of that and see dr before do anything for her back; since she received her covid shot--her body has changed and something is not right; need to see the dr about it; PAIN: L knee range of 5-1,000/10; sharp pain over medial and lateral aspects; shoots up and down leg from knee; knee pain wakes her up 3-4 x/night; use home tens and heat to decrease pain; Assessment PT Clinical Summary Amanda has received 5 PT sessions for her L knee pain. Compared to the initial evaluation: pain rating at the worst remains 10/10 and less rating worse from 3 to 5/10; sleeping tolerance is the same; active ROM in sitting is less: (-20') to 85', with pain at both extension and flexion motions; 2 minute walking test distance increased 25'; she continues to limp on L LE, have guarded motions and limited activity level due to knee pain; She has been educated on a home exercise program; and reports using a cane or wheeled walker, but when coming for therapy, does not bring them. The goals were not achieved. We also have orders for eval and treat back pain; she does not want to start any treatment on her back, until after she has the MRI in 2 days [address] dr. HOLD PT, await additional orders if PT is to continue. Plan of Care Treatment Frequency and HOLD PT at this time; to see dr, await new orders Duration if PT is to continue These treatments will address the objective and functional deficits as defined above. The patient will be advanced safely and appropri
--- NOTE | 2022-12-11 13:26 | PCPTNOTE ---
PHYSICAL THERAPY DISCHARGE 12-11-22 Attending Provider: DARLINE Guo Patient:Amanda Orozco Date of :1975 has not returned for any further treatments since the PT reevaluation on 10/29/2022, therefore she will be discharged at this time. Refer to that report, for her status at the last session. Thank you for referring this patient to [facility].
== END 2022-12-14 10:23 | disposition home or self-care (01) ==
LOC: ANHPT 08:00
PROVIDERS: Visit Provider Physician Assistant
DX: M54.50 Low back pain, unspecified (principal); M25.562 Pain in left knee
CPT/HCPCS: 97110; 97140; 97161; 97530; 99199

== ENCOUNTER 2022-10-31 10:45 | Outpatient (CLI) | payer OTHER, SELFPAY ==
--- NOTE | ~2022-10-31 | MR_ITS ---
MRI of the lumbar spine Clinical History: Back pain Technique: Axial T2-weighted images, and sagittal T1-weighted, T2-weighted, and T2 fat-sat images wer e acquired. COMPARISON: 11/02/2019 Findings: There is no fracture or subluxation of the lumbar spine. Vertebral bodies maintain normal h eight and alignment. No focal or suspicious bone marrow signal reality seen. No disc bulge or herniation seen at any lumbar level. There is no spinal canal stenosis or neural for aminal narrowing at any lumbar level. There are facet joint degenerative changes throughout the lumba r spine. Paravertebral soft tissues are unremarkable. Impression: No spinal canal stenosis or neural foraminal narrowing. No disc bulge or herniation. Facet joint degenerative changes throughout the lumbar spine. No fracture or subluxation. Reviewed, dictated and finalized at [facility]. DRESSING ENGINEER Impression: No spinal canal stenosis or neural foraminal narrowing. No disc bulge or hernia tion. Facet joint degenerative changes throughout the lumbar spine. No fracture or subluxation.
== END 2022-10-31 10:46 | disposition home or self-care (01) ==
PROVIDERS: PCP Physician Assistant; Visit Provider Physician Assistant
DX: M51.36 Other intervertebral disc degeneration, lumbar region (principal)
CPT/HCPCS: 72148

== ENCOUNTER 2022-11-05 10:55 | Outpatient (CLI) | payer OTHER, SELFPAY ==
--- NOTE | ~2022-11-05 | XR_ITS ---
Left Knee Technique: AP, lateral, and sunrise views were obtained. Clinical History: Pain Findings: No fracture or dislocation is seen. Osseous alignment is anatomic minimal spurring noted at the medial joint line and patella. Soft tissues are unremarkable. No joint effusion is seen. Impression: Minimal degenerative spurring, as detailed above. Reviewed, dictated and finalized at location [facility]. [employer] Impression: Minimal degenerative spurring, as detailed above.
== END 2022-11-05 10:56 | disposition home or self-care (01) ==
LOC: ANHIMG 10:57
PROVIDERS: PCP Physician Assistant; Visit Provider Physician Assistant
DX: M25.562 Pain in left knee (principal)
CPT/HCPCS: 73562

== ENCOUNTER 2022-12-29 16:55 | Outpatient (CLI) | payer OTHER, SELFPAY ==
--- NOTE | ~2022-12-29 | MR_ITS ---
EXAMINATION: MR knee LT wo con DATE: 12/29/2022 17:33 INDICATION: Left knee pain TECHNIQUE: Magnetic resonance imaging (MRI) of the left knee was performed without intravenous contra st. Sequences included coronal PD-weighted FSE, coronal PD-weighted FS FSE, sagittal T2-weighted FSE , sagittal PD-weighted FS FSE and axial PD weighted fat saturated FSE. COMPARISON: Left knee radiographs dated 11/15/2022 FINDINGS: Medial compartment: There is medial extrusion of the medial meniscal body which appears small. There is complex tear of t he posterior horn of the medial meniscus with longitudinal tear plane extending to the superior artic ular surface of the midportion of the posterior horn and separately small oblique tear along the free edge of the more lateral posterior horn. Partial-thickness chondral ulceration with up to 50% cartil age loss and without degenerative subchondral changes at the junction of the anterior to central weig htbearing medial femoral condyle and along the medial margin of the medial tibial plateau. Lateral compartment: Lateral meniscus is normal. Articular cartilage is normal. Patellofemoral compartment: Small partial-thickness chondral fissure involving less than 50% the cartilage thickness at the yanez lar apical ridge. Deep chondral ulceration with underlying cortical irregularity along mild subarticu lar edema-like signal change at the trochlear groove and inferior aspect of the medial trochlea. Ligaments and tendons: Anterior and posterior cruciate ligaments are normal. Mild thickening and mild increased signal of th e proximal medial collateral ligament without surrounding edema consistent with scarring related to c hronic sprain. The fibular collateral ligament complex is normal. Mild distal quadriceps tendinopathy . Patellar tendon is normal. The visualized medial and lateral hamstring tendons as well as the iliot ibial band are normal. Fluid: Small knee joint effusion at the medial and lateral gutters of the suprapatellar pouch. No loose oste ochondral bodies identified. Osseous/other: Bone alignment is normal. No fracture or pathologic marrow replacing process. IMPRESSION: 1. Complex tear of the posterior horn of the medial meniscal tear with medial extrusion of the small meniscal body. 2. 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 Reviewed, dictated and finalized at location [facility]. IMPRESSION: 1. Complex tear of the posterior horn of the medial meniscal tear with medial e xtrusion of the small meniscal body. 2. Mild patellofemoral and medial compartment osteoarthritis with high-grade tr ochlear chondromalacia moderate grade chondromalacia at the medial compartment and patella.
== END 2022-12-29 16:56 | disposition home or self-care (01) ==
PROVIDERS: PCP Physician Assistant; Visit Provider Physician Assistant
DX: M25.562 Pain in left knee (principal); S83.232A Complex tear of medial meniscus, current injury, left knee, initial encounter; M17.12 Unilateral primary osteoarthritis, left knee; M94.262 Chondromalacia, left knee
CPT/HCPCS: 73721

== ENCOUNTER 2023-01-11 08:02 | Emergency (ER) | payer OTHER, SELFPAY ==
[2023-01-11 08:11] VITALS: BP 160/107; PULSE 92; RESP 16; TEMP 36.4; O2SAT 99
[2023-01-11 08:12] VITALS: BP 160/107; PULSE 92; RESP 16; TEMP 36.4; O2SAT 99
--- NOTE | 2023-01-11 08:23 | ED.DENTAL ---
HPI - Dental/Oral General Chief complaint: Dental/Oral Stated complaint: Dental Pain Time Seen by Provider: 01/11/23 08:18 Source: patient and RN notes reviewed Mode of arrival: ambulatory Limitations: no limitations History of Present Illness HPI Narrative: Patient presents today complaining of right upper dental pain. States her tooth and gum was initially damaged approximately 6 months ago after a deep cleaning them, but flare occasionally. States she does need the tooth removed and has an appointment in February at [facility]. States pain returned approximately 5 days ago worsened since last night. Denies shortness of breath or difficulty swallowing. She currently rates her pain 10/10 and has been taking naproxen with some relief. Patient also has tramadol home any pain which she has not yet taken for this pain. She was on penicillin in October for same complaint. Related Data Home Medications Medication Instructions Recorded Confirmed alprazolam 1 mg tablet 1 mg PO DIRECTED 07/13/20 01/11/23 amlodipine 10 mg tablet 10 mg PO DAILY 07/13/20 01/11/23 buspirone 10 mg tablet 10 mg PO DAILY 07/13/20 01/11/23 clonidine HCl 0.1 mg tablet 0.1 mg PO DAILY 07/13/20 01/11/23 ergocalciferol (vitamin D2) 1,250 1,250 mcg PO DAILY 07/13/20 01/11/23 mcg (50,000 unit) capsule (Vitamin D2) olanzapine 5 mg tablet 5 mg PO DIRECTED 07/13/20 01/11/23 albuterol sulfate 90 mcg/actuation 2 inh inhalation DIRECTED 03/23/22 01/11/23 aerosol inhaler fluticasone propionate 110 2 inh inhalation DAILY 03/23/22 01/11/23 mcg/actuation HFA aerosol inhaler (Flovent HFA) gabapentin 400 mg capsule 1 cap PO DIRECTED 03/23/22 01/11/23 losartan 100 mg tablet 1 tablet PO DAILY 03/23/22 01/11/23 sertraline 50 mg tablet 50 mg PO DAILY 05/24/22 01/11/23 Allergies Allergy/AdvReac Type Severity Reaction Status Date / Time papaya Allergy Unknown ITCHING Verified 01/11/23 08:10 Review of Systems Review of Systems: CONSTITUTIONAL: Denies body aches, fever, chills, or sweats. EYES: Denies visual changes, redness, or discharge. ENT: Denies rhinorrhea, congestion, sore throat, or otalgia.+ right upper dental pain CARDIOVASCULAR: Denies chest pain, palpitations, or edema. RESPIRATORY: Denies cough or dyspnea. GASTROINTESTINAL: Denies abdominal pain, nausea, vomiting, or diarrhea. GENITOURINARY: Denies dysuria or hematuria. SKIN: Denies rash, itching, or wounds. MUSCULOSKELETAL: Denies back pain, joint pain, or myalgia. NEUROLOGIC: Denies headache, numbness, tingling, or weakness. PSYCH: Denies depression or anxiety. [facility] Past Medical History Medical History Anxiety Arthritis Asthma Bronchitis Depression Emphysema, unspecified GERD (gastroesophageal reflux disease) H/O: HTN (hypertension) Hypercholesteremia Peripheral neuropathy PTSD (post-traumatic stress disorder) Sleep apnea Surgical History Surgical History History of hysterectomy History of tonsillectomy Hx of tubal ligation Family History Family History Mother Hypertension Social History Social History Smoking status: Current every day smoker Alcohol intake: former Comments At time of signature, I have reviewed and agree with nursing past medical, surgical, social and family history unless otherwise noted. Please see nursing chart for further information. There is no relevant family history pertinent to the presenting complaint Exam Narrative: GENERAL: Well-appearing, well-nourished, mild pain distress. HEAD: Normocephalic, atraumatic. EYES: EOMI. No redness or drainage. Conjunctivae normal. ENT: Mucous membranes pink and moist. Throat normal. Uvula midline. Scan swelling of the right upper cheek. Pain to p
== END 2023-01-11 08:37 | disposition home or self-care (01) ==
PROVIDERS: Emergency Provider Nurse Practitioner; PCP Physician Assistant
DX: K08.89 Other specified disorders of teeth and supporting structures (principal); M19.90 Unspecified osteoarthritis, unspecified site; J45.909 Unspecified asthma, uncomplicated; J43.9 Emphysema, unspecified; K21.9 Gastro-esophageal reflux disease without esophagitis; I10 Essential (primary) hypertension; E78.00 Pure hypercholesterolemia, unspecified; G62.9 Polyneuropathy, unspecified; F41.9 Anxiety disorder, unspecified; F32.A Depression, unspecified
CPT/HCPCS: 99213; G0463

== ENCOUNTER 2023-02-04 08:31 | Outpatient (RCR) | payer OTHER, SELFPAY ==
--- NOTE | 2023-02-04 09:40 | PTOPEVAL1 ---
Assessment and note entered by Chloe Whyte, PT Evaluation Information Assessment Status Evaluation Diagnosis Left knee pain Onset 3 months ago Subjective Information Patient reports she fell while playing her dog onto her left knee with resulting increased pain. Patient had been previously coming to PT do address L knee pain and reports things had been improving before her fall occurred. Patient currently rating pain as 5/10, pain is worsened when walking, performing stairs, or bending knee. Patient reports left knee pain limits her ability to walk and perform stairs. Reported Pain Level Pain Score 5: Self Report Assessment PT Clinical Summary Patient is 47 year old female referred to Physical Therapy due to left knee pain. Patient reports she fells while playing with her dog, MRI shows complex tear of posterior horn of L meniscus as well as high grade trochlear chondromalacia. Patient reports pain at 5/10 in L medial knee with highest reported pain as 10/10. Pain is worsened with walking, bending of knee, stairs, or prolonged laying. Pain can be relieved when resting or slightly extending left knee when in sitting position with L foot on ground, heat and ice also help at home. Patient demonstrates decreased L knee range of motion as follows: L knee flexion 80 degrees and painful L knee extension-10. Decreased strength in left knee noted with L hip flexion 3/5, L knee extension 3-/ 5, L knee flexion 3/5. Patient unable to tolerate L leg single leg stance secondary to pain. Impairments in range of motion and strength currently causing impairments in step quality and safety with gait. Patient would benefit from skilled therapy services 2x/wk for 4 weeks to improve range of motion, increase strength, and decrease pain in order to improve safety and independence with functional mobility. Plan of Care Interventions Aquatic Therapy,Electrical Stimulation,Gait Training,Hot Pack/Cold Pack,Manual Therapy,Neuro Re-education,Patient/Caregiver Education,Therapeutic Activities,Therapeutic Exercise,Ultrasound PT Services Indicated Yes Treatment Frequency and 2x/wk for 4 weeks Duration These treatments will address the objective and functional deficits as defined above. The patient will be advanced safely and appropriately in order for the
--- NOTE | 2023-03-25 10:05 | PCPTNOTE ---
Admitting Provider: Attending Provider: Karlos Watt, Patient:Amanda Orozco Date of :1975 Patient has not returned for any further treatments since 02/04/2023, therefore (he/she) will be discharged at this time. Patient?s initial visit was on 02/04/2023 08:30 and (he/she) had a total of 1___ visits evaluation The goals have not been met as patient did not return to further treatment after initial evaluation Thank you for referring this patient to [facility]. Please review, sign, date and return this discharge summary ROSE. I have been updated about the patient's current status and I agree with discharge from the above service at this time. Referring Physician Date
== END 2023-04-01 14:30 | disposition home or self-care (01) ==
LOC: ANHPT 08:31
PROVIDERS: PCP Physician Assistant; Visit Provider Orthopaedic Surgery
DX: M25.562 Pain in left knee (principal)
CPT/HCPCS: 97110; 97162

== ENCOUNTER 2023-04-11 08:26 | Emergency (ER) | payer OTHER, SELFPAY ==
--- NOTE | 2023-04-11 08:28 | ED.DENTAL ---
HPI - Dental/Oral General Chief complaint: Dental/Oral Stated complaint: right side tooth pain Time Seen by Provider: 04/11/23 08:28 Source: patient Mode of arrival: ambulatory Limitations: no limitations History of Present Illness HPI Narrative: Patient is a 47-year-old female presents right lower dental pain. Patient has had dental abscesses and pain since last November. Patient was last treated for abscess in December. Patient denies any bitter taste in mouth but states the tooth is tender to touch. Patient is still able to eat and drink normally. Patient denies any throat swelling or difficulty swallowing. Patient denies any fever, chills, headache. Patient has appointment made with dentist in May along with oral surgeon. Related Data Home Medications Medication Instructions Recorded Confirmed alprazolam 1 mg tablet 1 mg PO DIRECTED 07/13/20 04/11/23 amlodipine 10 mg tablet 10 mg PO DAILY 07/13/20 04/11/23 buspirone 10 mg tablet 10 mg PO DAILY 07/13/20 04/11/23 clonidine HCl 0.1 mg tablet 0.1 mg PO DAILY 07/13/20 04/11/23 ergocalciferol (vitamin D2) 1,250 1,250 mcg PO DAILY 07/13/20 04/11/23 mcg (50,000 unit) capsule (Vitamin D2) olanzapine 5 mg tablet 5 mg PO DIRECTED 07/13/20 04/11/23 albuterol sulfate 90 mcg/actuation 2 inh inhalation DIRECTED 03/23/22 04/11/23 aerosol inhaler fluticasone propionate 110 2 inh inhalation DAILY 03/23/22 04/11/23 mcg/actuation HFA aerosol inhaler (Flovent HFA) gabapentin 400 mg capsule 1 cap PO DIRECTED 03/23/22 04/11/23 losartan 100 mg tablet 1 tablet PO DAILY 03/23/22 04/11/23 sertraline 50 mg tablet 50 mg PO DAILY 05/24/22 04/11/23 naproxen 500 mg tablet 500 mg PO BID 04/11/23 04/11/23 Allergies Allergy/AdvReac Type Severity Reaction Status Date / Time papaya Allergy Unknown ITCHING Verified 04/11/23 08:39 Review of Systems Review of Systems: All systems reviewed & are unremarkable except as noted in HPI and below Constitutional: Constitutional: Denies body ache(s), Denies fever(s), Denies headache(s), Denies malaise and Denies weakness Eyes: Eyes: Denies loss of vision ENT: Denies otalgia, Reports facial pain (jaw), Denies headache(s), Denies nasal discharge, Denies sinus pain and Denies sore throat Cardiovascular: Cardiovascular: Denies chest pain, Denies irregular heart rhythm and Denies dyspnea Respiratory: Respiratory: Denies dyspnea Gastrointestinal: Gastrointestinal: Denies abdominal pain, Denies melena, Denies hematochezia, Denies diarrhea, Denies nausea and Denies vomiting Musculoskeletal: Musculoskeletal: Denies back pain, Denies myalgias and Denies arthralgias Integumentary/Breasts: Skin/Breast: Denies pruritus and Denies rash Neurologic: Denies headache(s), Denies loss of vision and Denies weakness Psychiatric: Psychiatric: Reports no additional psychiatric complaints PMFSH Past Medical History Medical History Anxiety Arthritis Asthma Bronchitis Depression Emphysema, unspecified GERD (gastroesophageal reflux disease) H/O: HTN (hypertension) Hypercholesteremia Peripheral neuropathy PTSD (post-traumatic stress disorder) Sleep apnea Surgical History Surgical History History of hysterectomy History of tonsillectomy Hx of tubal ligation Family History Family History Mother Hypertension Social History Social History Smoking status: Current every day smoker Alcohol intake: former Comments At time of signature, agree with nursing past medical, surgical, social and family history. There is no relevant family history pertinent to the presenting complaint. Exam Const: General: cooperative, healthy appearing, comfortable, no acute distress and well nourished Nutritional Appea
[2023-04-11 08:41] VITALS: BP 161/93; PULSE 65; RESP 16; TEMP 36.7; O2SAT 98
== END 2023-04-11 09:17 | disposition home or self-care (01) ==
PROVIDERS: Emergency Provider Nurse Practitioner Family; PCP Physician Assistant
DX: K04.7 Periapical abscess without sinus (principal); M19.90 Unspecified osteoarthritis, unspecified site; K21.9 Gastro-esophageal reflux disease without esophagitis; I10 Essential (primary) hypertension; E78.00 Pure hypercholesterolemia, unspecified; G62.9 Polyneuropathy, unspecified; F17.200 Nicotine dependence, unspecified, uncomplicated; F41.9 Anxiety disorder, unspecified; F32.A Depression, unspecified
CPT/HCPCS: 99213; G0463

== ENCOUNTER 2023-05-24 11:25 | Emergency (ER) | payer OTHER, SELFPAY ==
[2023-05-24 11:39] VITALS: BP 142/87; PULSE 80; RESP 16; TEMP 36.7; O2SAT 100
--- NOTE | 2023-05-24 11:44 | ED.DENTAL ---
HPI - Dental/Oral General Chief complaint: Dental/Oral Stated complaint: Dental Pain Time Seen by Provider: 05/24/23 11:40 Source: patient Mode of arrival: ambulatory Limitations: no limitations History of Present Illness HPI Narrative: Alma is a 48-year-old female patient presenting to the clinic today with complaints of left lower dental pain times 2-3 days. She reports that the pain developed after recently getting a teeth cleaning. States that she is having pain and swelling to the left lower jaw that is radiating into her left ear. Denies any known fever or chills. Related Data Home Medications Medication Instructions Recorded Confirmed alprazolam 1 mg tablet 1 mg PO DIRECTED 07/13/20 04/11/23 amlodipine 10 mg tablet 10 mg PO DAILY 07/13/20 04/11/23 buspirone 10 mg tablet 10 mg PO DAILY 07/13/20 04/11/23 clonidine HCl 0.1 mg tablet 0.1 mg PO DAILY 07/13/20 04/11/23 ergocalciferol (vitamin D2) 1,250 1,250 mcg PO DAILY 07/13/20 04/11/23 mcg (50,000 unit) capsule (Vitamin D2) olanzapine 5 mg tablet 5 mg PO DIRECTED 07/13/20 04/11/23 albuterol sulfate 90 mcg/actuation 2 inh inhalation DIRECTED 03/23/22 04/11/23 aerosol inhaler fluticasone propionate 110 2 inh inhalation DAILY 03/23/22 04/11/23 mcg/actuation HFA aerosol inhaler (Flovent HFA) gabapentin 400 mg capsule 1 cap PO DIRECTED 03/23/22 04/11/23 losartan 100 mg tablet 1 tablet PO DAILY 03/23/22 04/11/23 sertraline 50 mg tablet 50 mg PO DAILY 05/24/22 04/11/23 naproxen 500 mg tablet 500 mg PO BID 04/11/23 04/11/23 Allergies Allergy/AdvReac Type Severity Reaction Status Date / Time papaya Allergy Unknown ITCHING Verified 04/11/23 08:39 Review of Systems Review of Systems: Pertinent positives per HPI. Patient denies any fever, chills, rash, headache, visual changes, dizziness, cough, runny nose, sore throat, shortness of breath, chest pain, palpitations, nausea, vomiting, diarrhea, constipation, abdominal pain, or any urinary issues. [facility] Past Medical History Medical History Anxiety Arthritis Asthma Bronchitis Depression Emphysema, unspecified GERD (gastroesophageal reflux disease) H/O: HTN (hypertension) Hypercholesteremia Peripheral neuropathy PTSD (post-traumatic stress disorder) Sleep apnea Surgical History Surgical History History of hysterectomy History of tonsillectomy Hx of tubal ligation Family History Family History Mother Hypertension Social History Social History Smoking status: Current every day smoker Alcohol intake: former Comments At the time of my signature, I reviewed and agree with the nursing past medical, surgical, social, and family history. There is no relevant family history pertinent to the patient complaint. Exam Narrative: General: Well-developed, well nourished, in no apparent distress Head: Normocephalic, atraumatic Eyes: Pupils equally round and reactive to light bilaterally, EOM intact, sclera and conjunctive clear, no discharge, lids normal Ears: TMs intact and clear, ear canals clear, no drainage, grossly hearing normal. Nose: Nares patent, no discharge, no inflammation, no sinus tenderness. Mouth: Oropharynx without lesions or masses, very poor dentition, MMM. Fractured/decayed posterior left lower molar with surrounding swelling in the gums, tender to palpation with swelling noted to the left lower jaw. Neck: Supple, trachea midline, no enlargement of anterior or posterior cervical nodes, no thyroid masses or goiter palpable. Cardio: Regular rate and rhythm, s1 and s2 normal, no murmur appreciated. Resp: Clear to auscultation bilaterally anteriorly and posteriorly, no rhonchi, rales, wheezing or rubs Course Course
== END 2023-05-24 11:50 | disposition home or self-care (01) ==
PROVIDERS: Emergency Provider Nurse Practitioner Family; PCP Physician Assistant
DX: K04.7 Periapical abscess without sinus (principal); M19.90 Unspecified osteoarthritis, unspecified site; K21.9 Gastro-esophageal reflux disease without esophagitis; I10 Essential (primary) hypertension; E78.00 Pure hypercholesterolemia, unspecified; G62.9 Polyneuropathy, unspecified; F43.10 Post-traumatic stress disorder, unspecified; F41.9 Anxiety disorder, unspecified; F32.A Depression, unspecified
CPT/HCPCS: 99213; G0463

== ENCOUNTER 2023-06-03 09:15 | Outpatient (RCR) | payer OTHER, SELFPAY ==
--- NOTE | 2023-04-15 08:18 | PCPTNOTE ---
pt to dept today for eval, with orders from Lizeth Singh for low back pain. Pt stated she is not here for her back, is here for her knee pain- from her ortho orders. She was here in December for knee eval, and did not return due to having to go out of town. She was d/c from PT. Discussed with pt that she needs a new order for her knee, cannot treat from the previous order, because she was d/c'd. She is going to obtain a new knee order from her ortho .
--- NOTE | 2023-04-21 10:45 | OPREHPOC ---
Outpatient Therapy Plan of Care This is a Multidisciplinary Plan of Care that may contain components documented by all disciplines (PT, OT, and ST.) PT Problem 1 PT Problem #1 Knowledge Deficit PT Goal 1 Goal independent with HEP Target Visit 8 PT Problem 2 PT Problem #2 Pain PT Goal 1 Goal decrease L knee pain rating to 6/10 at worst. Target Visit 8 PT Problem 3 PT Problem #3 Impaired Strength PT Goal 1 Goal able to do manual muscle testing and show 4-/5 strength in the L knee without pain Target Visit 8
--- NOTE | 2023-04-21 10:46 | PTOPEVAL1 ---
Assessment and note entered by Xu Rea, PT Evaluation Information Assessment Status Evaluation Diagnosis L knee pain Subjective Information Patient reports she has been dealing with this L knee pain for awhile and also has an order from her orthopedic doctor, Karlos Watt, for an offloader brace, but she has not scheduled the appointment. The patient asked the physical therapist to check and he called [employer] and they report they have the order and called the patient multiple times, but she never called them back to schedule. Patient reports the knee has given out on her and the she has had surgery suggested by doctor, but does not want to do surgery. Patient uses a cane to get around and for pain control uses a TENS unit, heat, her already given HEP from a prior stint of physical therapy, and will soak it in the tub. Reported Pain Level Pain Score 8: Self Report Assessment PT Clinical Summary Amanda is a 47 year old female coming into the clinic with a diagnosis of L knee pain. Patient has limited evaluation secondary to pain around the knee. Will start with aquatic therapy to see if we are able to work on strengthening the knee while decreasing the stress on the joint and back. Hopeful to transition to land therapy and also to get patient her brace. Plan of Care Interventions Aquatic Therapy,Electrical Stimulation,Gait Training,Hot Pack/Cold Pack,Manual Therapy, Paraffin Bath,Patient/Caregiver Education, Therapeutic Activities,Therapeutic Exercise, Ultrasound Other Interventions cupping, taping, and IASTM PT Services Indicated Yes Treatment Frequency and 1-2x/wk for 4 weeks Duration These treatments will address the objective and functional deficits as defined above. The patient will be advanced safely and appropriately in order for the patient to progress towards his/her prior level of function. Additional exercises will be introduced and as well as a comprehensive home exercise program upon discharge, if needed, ?to ensure carryover of functional gains achieved in the clinic. This treatment plan has been reviewed and agreement upon by the patient.
--- NOTE | 2023-04-22 08:50 | PCPTNOTE ---
Patient did not show up for appointment, called patient who states she did not realize she was scheduled for a treatment today. States she will be in next week for scheduled appointments.
--- NOTE | 2023-04-29 10:02 | PCPTNOTE ---
Physical therapist was called back to the pool to assess the patient as she has had a fall she reports 15 minutes prior to her appointment at the MD orders. Patient reports the nurse there cleared her, but she wanted a second opinion. Physical therapy went through special test for ligaments and meniscus with patient reporting that her knee feels the same pre and post the fall. Patient reports he pain as a 6/10 which is her normal according to her. Physical therapist and assistant men's soccer coach both state to the patient if she feels likes she wants to go to the ER to get the knee checked out that is fine, but patient declines stating the pool will be better than anything else. Patient is lifted into the pool using the chair lift. As she is getting into the pool she states the knee looks more swollen and redder than the R knee. Physical therapy staff again tell her she does not have to do therapy today and can get her knee looked at by the ER, but she declines. In the pool patient stands on her LLE without it buckling or increased pain. Also remind patient that we have called [employer] on her behalf and they state they called her multiple times, which she states they haven't and they probably have the wrong number. Encouraged the patient to call [employer] Administrator or go over there as it is right across the street from here to scheudled an appointment. Gave patient printout with Marketing Administrator information.
--- NOTE | 2023-05-04 11:37 | PCPTNOTE ---
pt did not show for today's aquatic appointment. I called her and she had the wrong time for today's appointment. She is going to check availability with the lead front desk agent for another time this week.
--- NOTE | 2023-05-06 09:42 | PCPTNOTE ---
Pt had to cancel this morning due to family emergency.
--- NOTE | 2023-05-18 08:42 | PCPTNOTE ---
Patient called & cancelled scheduled appointment this date rescheduled for tomorrow.
--- NOTE | 2023-05-19 10:33 | PTOPPROG ---
Assessment and note entered by Xu Rea, PT Evaluation Information Assessment Status Progress Diagnosis L knee joint pain Subjective Information Patient reports the knee is feeling a lot better and she has tried to get into [facility] to try and get her knee brace, but with her daughter passing she got confused on the time, but has reported to call [facility] and have it rescheduled for the end of this month. Patient also reports L hip is hurting her more than her knee and she slept on it wrong. (Patient was also asked if she is seeing anyone for grieve counseling as she appears to discussing it a lot with the physical therapist now and the INSPE[employer]INE[employer] when doing aquatic therapy and we are not trained in that therapy. Patient reports she sees a counselor once a week and a Psychiatrist every two months.) Assessment PT Clinical Summary Amanda is a 48 year old female coming into the clinic with a diagnosis of L knee pain. She was evaluated on 04/20/23 and has attended 6 sessions since then with 4 being in the pool. Patient has a tendency to have her pain jump around her body which could be secondary to compensations for pain elsewhere in the body. Patient also lost her daughter since evaluation. The lost of her daughter is heavy on her mind right now and encourage patient to talk to others to help her through this difficult time. Patient would like to continue to do therapy while she is waiting to get her brace and to work on gait training once she has her brace, which does make sense to this therapist. Patient was able to allow patient to take manual muscle testing of knee which was unable at evaluation so there is some progress. Hopeful to progress to some land based therapy once patient gets her knee brace. Plan of Care Interventions Aquatic Therapy,Electrical Stimulation,Gait Training,Hot Pack/Cold Pack,Manual Therapy,Neuro Re-education,Patient/Caregiver Education,Therapeutic Activities,Therapeutic Exercise,Ultrasound Other Interventions cupping, taping, IASTM PT Services Indicated Yes Treatment Frequency and 1-2x/wk for 8 visits Duration These treatments will address the objective and functional deficits as defined above. The patient will be advanced safely and appropriately in order for the patient to progress towards his/her prior level of function. Additional exercises will be introduced and as well as a comprehensive home exercise program upon discharge, if needed, ?to ensure
--- NOTE | 2023-06-10 09:26 | PCPTNOTE ---
Pt cancelled her appt today due to lack of sleep from sleep study last night.
--- NOTE | 2023-06-16 09:47 | PCPTNOTE ---
Ms. Orozco did not show for her scheduled appointment on this date. Attempted to contact the pt. with no response. Roshan Mcintosh, MPT
--- NOTE | 2023-06-30 15:34 | PTOPDC ---
Assessment and note entered by Roshan Mcintosh Evaluation Information Assessment Status Discharge - Pt Not Present Diagnosis L knee joint pain Assessment PT Clinical Summary Mrs. Orozco attended a total of 8 treatment sessions. Pt. has failed to show for her last 2 scheduled appointments and has not contacted the clinic. At this time refer to the last daily note for pt. status and she will be discharged from our care. Plan of Care PT Services Indicated No
== END 2023-07-02 12:50 | disposition home or self-care (01) ==
LOC: ANHPT 09:15
PROVIDERS: PCP Physician Assistant; Visit Provider Orthopaedic Surgery
DX: M54.50 Low back pain, unspecified (principal); M25.562 Pain in left knee
CPT/HCPCS: 97110; 97113; 97161; 99199

== ENCOUNTER 2023-06-09 09:14 | Outpatient (CLI) | payer OTHER, SELFPAY ==
--- NOTE | 2023-07-01 11:26 | WPDSLEEPSTUD ---
Sleep Study Date of Study: 06/09/23 Ordering Provider: Lizeth Lima, DARLINE Interpreting Physician: Margarita Ross MD Sleep Study Type: Polysomnogram Height: 1.68 m Weight: 103.873 kg Body Mass Index: 36.9 Neck Circumference (inches): 15 [place]: 12 Reason for Sleep Study Witnessed apnea, loud snoring, daytime fatigue Sleep History Ronald Orozco is a 48-year-old female with hypertension, depression, anxiety and PTSD, nasal allergies, and hot flashes. She has complaints of stopping breathing during sleep. She does not feel rested on waking. She wakes up feeling sluggish, tired, and lazy. These sleep problems have been present for more than 2 years. She occasionally awakens from sleep feeling short of breath. She rarely awakens at night with heartburn, belching or coughing. She always snores and it is frequently loud enough that others complain about it. She frequently has difficulty sleeping with a cold. She occasionally wakes up gasping for breath at night. She constantly sweats excessively at night. She rarely notices her heart pounding or beating irregularly at night. She constantly falls asleep during the day, frequently falls asleep involuntarily however never falls asleep while driving. She occasionally has loss of muscle tone with strong emotion. She rarely has daytime difficulties due to excessive sleepiness. She occasionally feels paralyzed on waking or falling asleep. She occasionally has vivid dreamlike scenes upon awakening or falling asleep. She rarely feels afraid to go to sleep. She frequently has nightmares. She rarely remembers her dreams. She constantly has racing thoughts, feelings of sadness, depression and anxiety. She frequently has muscular tension. She occasionally notices parts of her body jerking. She occasionally kicks at night. She occasionally has crawling and aching feelings in her legs. She rarely has any kind of leg pain at night. She only has pain in the left knee. She does not have morning jaw pain. She does not grind her teeth during sleep. She frequently is bothered by pain during the day and awakened by pain at night. She constantly wakes up feeling stiff in the morning. She frequently wakes up with sore or achy muscles and pain in the neck and spine. She currently is not working. She has headaches, fatigue, memory problems and concentration difficulties. She reports losing 20 lb during the last year. Normal bedtime is between 6:00 p.m. and 7:00 p.m.. She is not sure how long it takes to fall asleep, sometimes longer than expected. She wakes up several times during the night. These awakenings may last an hour or longer. While awake at night, she drinks water and watches television. She does not have a fixed wake-up time. She estimates getting between 3 and 4 hours of sleep at night. She takes naps in the afternoon or evening. Sometimes, a short nap is refreshing. She is usually drowsy for 3 hours or longer after waking. She feels better in the evening compared to other times of day. Habits: Quit tobacco a month ago. Caffeine 2 servings per day. No alcohol. No recreational substance. [facility] Past Medical History Medical History Anxiety Arthritis Asthma Bronchitis Depression Emphysema, unspecified GERD (gastroesophageal reflux disease) H/O: HTN (hypertension) Hypercholesteremia Peripheral neuropathy PTSD (post-traumatic stress disorder) Sleep apnea Surgical History Surgical History History of hysterectomy History of tonsillectomy Hx of tubal ligation Family History Family History Mother Hypertension Social History Social History Smoking status: Current every day smoker Alcohol intake: former Medications Home Medications Me
[2023-07-01 11:28] VITALS: BMI 36.9
== END 2023-06-10 07:56 | disposition home or self-care (01) ==
LOC: ANHCSM 09:14
PROVIDERS: PCP Physician Assistant; Visit Provider Physician Assistant
DX: G47.10 Hypersomnia, unspecified (principal); R06.83 Snoring; Z72.821 Inadequate sleep hygiene; G47.33 Obstructive sleep apnea (adult) (pediatric)
CPT/HCPCS: 95810

== ENCOUNTER 2023-07-18 08:03 | Emergency (ER) | payer OTHER, SELFPAY ==
--- NOTE | 2023-07-18 08:04 | ED.DENTAL ---
HPI - Dental/Oral General Chief complaint: Dental/Oral Stated complaint: Dental Pain Time Seen by Provider: 07/18/23 08:25 Mode of arrival: ambulatory Limitations: no limitations History of Present Illness HPI Narrative: 48-year-old female presents concern for left lower dental pain. She reports she has had problems in this area on and off for time. She reports she took her last to tramadol and has been taking ibuprofen with mild relief. She reports she is trying to find a new dentist. She denies fever difficulty swallowing MD Complaint: tooth pain Related Data Home Medications Medication Instructions Recorded Confirmed alprazolam 1 mg tablet 1 mg PO DIRECTED 07/13/20 07/18/23 amlodipine 10 mg tablet 10 mg PO DAILY 07/13/20 07/18/23 buspirone 10 mg tablet 10 mg PO DAILY 07/13/20 07/18/23 clonidine HCl 0.1 mg tablet 0.1 mg PO DAILY 07/13/20 07/18/23 ergocalciferol (vitamin D2) 1,250 1,250 mcg PO DAILY 07/13/20 07/18/23 mcg (50,000 unit) capsule (Vitamin D2) olanzapine 5 mg tablet 5 mg PO DIRECTED 07/13/20 07/18/23 albuterol sulfate 90 mcg/actuation 2 inh inhalation DIRECTED 03/23/22 07/18/23 aerosol inhaler fluticasone propionate 110 2 inh inhalation DAILY 03/23/22 07/18/23 mcg/actuation HFA aerosol inhaler (Flovent HFA) gabapentin 400 mg capsule 1 cap PO DIRECTED 03/23/22 07/18/23 losartan 100 mg tablet 1 tablet PO DAILY 03/23/22 07/18/23 sertraline 50 mg tablet 50 mg PO DAILY 05/24/22 07/18/23 naproxen 500 mg tablet 500 mg PO BID 04/11/23 07/18/23 Allergies Allergy/AdvReac Type Severity Reaction Status Date / Time papaya Allergy Unknown ITCHING Verified 07/18/23 08:07 Review of Systems Review of Systems: CONSTITUTIONAL: Denies malaise, chills, sweats, or fever. EYES: Denies visual changes ENT: Denies rhinorrhea, congestion, sinus pain, otalgia or sore throat. Reports left lower dental pain CARDIOVASCULAR: Denies chest pain, palpitations RESPIRATORY: Denies cough or dyspnea. SKIN: Denies rash or itching. MUSCULOSKELETAL: Denies myalgia. NEUROLOGIC: Denies numbness, weakness, or headache. All systems reviewed & are unremarkable except as noted in HPI and below PMFSH Past Medical History Medical History Anxiety Arthritis Asthma Bronchitis Depression Emphysema, unspecified GERD (gastroesophageal reflux disease) H/O: HTN (hypertension) Hypercholesteremia Peripheral neuropathy PTSD (post-traumatic stress disorder) Sleep apnea Surgical History Surgical History History of hysterectomy History of tonsillectomy Hx of tubal ligation Family History Family History Mother Hypertension Social History Social History Smoking status: Current every day smoker Alcohol intake: former Comments At time of signature, agree with nursing past medical, surgical, social and family history. There is no relevant family history pertinent to the presenting complaint Exam Narrative: GENERAL: Well-appearing, well-nourished, and in no acute distress. HEAD: Normocephalic, atraumatic. EYES: PERRLA, sclera clear ENT: Nares clear, turbinates pink, no rhinorrhea or epistaxis. Mucous membranes moist. Oropharynx without erythema or lesions. Tonsils not enlarged and without exudate. left-sided caries noted, left jaw swelling NECK: Supple. No lymphadenopathy. CHEST: No respiratory distress. Speaks in full sentences. HEART: Regular rate and rhythm. SKIN: Warm, dry, no visible rash. NEURO: Alert and oriented x3. PSYCH: tearful Course Course Emergency Course: Patient is aware of diagnosis, understands and agrees to treatment plan. Anticipatory guidance given. Patient agrees to follow-up as directed and is aware of reasons to seek care at the emergency department. P
[2023-07-18 08:12] VITALS: BP 156/119; PULSE 95; RESP 16; TEMP 36.2; O2SAT 99
== END 2023-07-18 08:39 | disposition home or self-care (01) ==
PROVIDERS: Emergency Provider Nurse Practitioner; PCP Physician Assistant
DX: K04.7 Periapical abscess without sinus (principal); I10 Essential (primary) hypertension; J43.9 Emphysema, unspecified; F17.200 Nicotine dependence, unspecified, uncomplicated; Z79.899 Other long term (current) drug therapy
CPT/HCPCS: 99213; G0463

== ENCOUNTER 2023-09-02 09:12 | Emergency (ER) | payer OTHER, SELFPAY ==
[2023-09-02 09:20] VITALS: BP 158/106; PULSE 98; RESP 16; TEMP 36.8; O2SAT 99
--- NOTE | 2023-09-02 09:20 | ED.GENADULT ---
HPI - General Adult General Chief complaint: Dental/Oral Stated complaint: left tooth pain Time Seen by Provider: 09/02/23 09:21 Source: patient, RN notes reviewed and old records reviewed Mode of arrival: ambulatory Limitations: no limitations History of Present Illness HPI narrative: 48-year-old female presents to [facility] with complaints of left lower dental pain that started 1 week ago, patient now also has left lower facial swelling this started 1-2 days ago. Patient states has been to the dentist, but is having issues with insurance at this time. MD complaint: Dental pain Onset (ago): week(s) (1) Related Data Home Medications Medication Instructions Recorded Confirmed alprazolam 1 mg tablet 1 mg PO DIRECTED 07/13/20 07/18/23 amlodipine 10 mg tablet 10 mg PO DAILY 07/13/20 07/18/23 buspirone 10 mg tablet 10 mg PO DAILY 07/13/20 07/18/23 clonidine HCl 0.1 mg tablet 0.1 mg PO DAILY 07/13/20 07/18/23 ergocalciferol (vitamin D2) 1,250 1,250 mcg PO DAILY 07/13/20 07/18/23 mcg (50,000 unit) capsule (Vitamin D2) olanzapine 5 mg tablet 5 mg PO DIRECTED 07/13/20 07/18/23 albuterol sulfate 90 mcg/actuation 2 inh inhalation DIRECTED 03/23/22 07/18/23 aerosol inhaler fluticasone propionate 110 2 inh inhalation DAILY 03/23/22 07/18/23 mcg/actuation HFA aerosol inhaler (Flovent HFA) gabapentin 400 mg capsule 1 cap PO DIRECTED 03/23/22 07/18/23 losartan 100 mg tablet 1 tablet PO DAILY 03/23/22 07/18/23 sertraline 50 mg tablet 50 mg PO DAILY 05/24/22 07/18/23 naproxen 500 mg tablet 500 mg PO BID 04/11/23 07/18/23 Allergies Allergy/AdvReac Type Severity Reaction Status Date / Time papaya Allergy Intermediate ITCHING Verified 07/18/23 11:06 Review of Systems Constitutional: Constitutional: Reports no additional constitutional complaints Eyes: Eyes: Reports no additional eye complaints ENT: Reports dental pain and Reports facial pain Cardiovascular: Cardiovascular: Reports no additional cardiovascular complaints Respiratory: Respiratory: Reports no additional respiratory complaints Neurologic: Reports system reviewed and no additional complaints, except as documented PMF Past Medical History Medical History Anxiety Arthritis Asthma Bronchitis Depression Emphysema, unspecified GERD (gastroesophageal reflux disease) H/O: HTN (hypertension) Hypercholesteremia Peripheral neuropathy PTSD (post-traumatic stress disorder) Sleep apnea Surgical History Surgical History History of hysterectomy History of tonsillectomy Hx of tubal ligation Family History Family History Mother Hypertension Social History Social History Smoking status: Current every day smoker Alcohol intake: former Comments At the time of my signature, I reviewed and agree with the nursing past medical, surgical, social, and family history. There is no relevant family history pertinent to the patient complaint. Exam Const: General: cooperative, healthy appearing, no acute distress and well nourished Nutritional Appearance: well nourished Orientation/consciousness: patient oriented x3 Limitations: no limitations HENMT: Head: normal to inspection and normocephalic Ears: external ears normal, TM's normal bilaterally, mastoids normal and Abnormal EAC present Face/Nose/Sinus: normal facial exam Face and sinus: normal facial exam Mouth: Yes oropharynx normal and Yes moist mucous membranes Teeth and gingiva: caries, gingiva abnormal ( broken, decayed tooth 19. With gum swelling noted) edematous and tender and poor dentition Throat: posterior oropharynx normal, tonsils normal, uvula midline and no uvular edema Eyes: General: appearance normal, both eyes and all related structures Sclera
== END 2023-09-02 09:38 | disposition home or self-care (01) ==
PROVIDERS: Emergency Provider Registered Nurse; PCP Physician Assistant
DX: K04.7 Periapical abscess without sinus (principal); F41.9 Anxiety disorder, unspecified; M19.90 Unspecified osteoarthritis, unspecified site; J45.909 Unspecified asthma, uncomplicated; F32.A Depression, unspecified; J43.9 Emphysema, unspecified; K21.9 Gastro-esophageal reflux disease without esophagitis; I10 Essential (primary) hypertension; E78.00 Pure hypercholesterolemia, unspecified; G62.9 Polyneuropathy, unspecified; F43.10 Post-traumatic stress disorder, unspecified; F17.200 Nicotine dependence, unspecified, uncomplicated
CPT/HCPCS: 97113; 99213; G0463

== ENCOUNTER 2023-09-16 13:00 | Outpatient (RCR) | payer OTHER, SELFPAY ==
--- NOTE | 2023-08-26 16:15 | PTOPEVAL1 ---
Assessment and note entered by Bird Shepard, PT Evaluation Information Assessment Status Evaluation Diagnosis Left Knee pain, Altered gait, Foot fracture Onset 07/25/23 Subjective Information States that she had a fall. She fractured her R foot and twisted her left. Reports that she was fitted for a custom knee brace but has since lost a lot of weight and no longer fits. History of tear in left knee which is why she was wearing the brace. Reports that she is having a lot of pain correlated to activity and exercise. Feels also bothered by temperature changes. Reported Pain Level Pain Score 5: Self Report Assessment PT Clinical Summary Patient presents with heightened soft tissue sensitivity of the gross knee, loss in ROM, and significant weakness of LEs bilaterally. Patient was visibly emotional during evaluation due to recent loss of her daughter. Required a lot of education and time for transfers and position change. Will benefit from skilled therapy to address these deficits to improve gait mechanics and functional mobility. Plan of Care Interventions Aquatic Therapy,Electrical Stimulation,Manual Therapy,Neuro Re-education,Therapeutic Activities, Therapeutic Exercise PT Services Indicated Yes Treatment Frequency and 2x/week for 4 weeks Duration These treatments will address the objective and functional deficits as defined above. The patient will be advanced safely and appropriately in order for the patient to progress towards his/her prior level of function. Additional exercises will be introduced and as well as a comprehensive home exercise program upon discharge, if needed, ?to ensure carryover of functional gains achieved in the clinic. This treatment plan has been reviewed and agreement upon by the patient.
--- NOTE | 2023-08-26 16:15 | OPREHPOC ---
Outpatient Therapy Plan of Care This is a Multidisciplinary Plan of Care that may contain components documented by all disciplines (PT, OT, and ST.) PT Problem 1 PT Problem #1 Knowledge Deficit PT Goal 1 Goal Independent with HEP Target Visit 4 PT Problem 2 PT Problem #2 Pain PT Goal 1 Goal Report 0/10 knee pain with sit to stand transfer Target Visit 4 PT Goal 2 Progress Partially Met PT Problem 3 PT Problem #3 Impaired Range of Motion PT Goal 1 Goal Demonstrate esme knee flexion of 110 degrees to allow for improved functional squatting and foot clearance Target Visit 8 PT Problem 4 PT Problem #4 Impaired Strength PT Goal 1 Goal Improve esme knee extension strength to 5/5 to improve stability with ADLs and functional mobility Target Visit 8 PT Goal 2 Goal Improve esme hip abduction strength to 4/5 to improve lateral pelvic stability with ADLs Target Visit 8 PT Problem 5 PT Problem #5 Impaired Gait PT Goal 1 Goal Ambulate with even stride length bilaterally Target Visit 8
--- NOTE | 2023-09-07 15:18 | PCPTNOTE ---
Pt cancelled today becuase she couldn't make it.
--- NOTE | 2023-09-14 10:14 | PCPTNOTE ---
Patient called & cancelled scheduled appointment this date due to going to her Doctor for high blood pressure.
--- NOTE | 2023-09-23 13:48 | PCPTNOTE ---
Patient was a No Show for today's Progress Note therapy session.
--- NOTE | 2023-11-11 08:50 | PTOPDC ---
Assessment and note entered by Bird Shepard, PT Evaluation Information Assessment Status Discharge - Pt Not Present Diagnosis Left Knee pain, Altered gait, Foot fracture Onset 07/25/23 Subjective Information Patient called to cancel remaining appointments secondary to other health concerns that she needed to address. Electing to be discharged from PT at this time. Assessment PT Clinical Summary Patient discharging from skilled therapy at this time per request. Please refer to last treatment note for discharge status. Plan of Care PT Services Indicated Yes
== END 2023-11-11 10:36 | disposition home or self-care (01) ==
LOC: ANHPT 13:00
PROVIDERS: PCP Physician Assistant; Visit Provider Physician Assistant
DX: M25.562 Pain in left knee (principal)
CPT/HCPCS: 97110; 97113; 97161; 97530; 99199

== ENCOUNTER 2024-01-27 10:30 | Outpatient (RCR) | payer OTHER, SELFPAY ==
--- NOTE | 2024-01-06 08:58 | OPREHPOC ---
Outpatient Therapy Plan of Care This is a Multidisciplinary Plan of Care that may contain components documented by all disciplines (PT, OT, and ST.) PT Problem 1 PT Problem #1 Knowledge Deficit PT Goal 1 Goal *indep with HEP PT Problem 2 PT Problem #2 Pain PT Goal 1 Goal 1* pain rating at worst of 5/10 2* LE functional scale rating of 60% limitation in activity level 3* reported walking/standing tolerance of 15 minutes PT Problem 3 PT Problem #3 Impaired Flexibility PT Goal 1 Goal *increase L ankle ROM to improve walking and mobility skills sitting active 1* DF 10' 2* PF 45' PT Problem 4 PT Problem #4 Impaired Strength PT Goal 1 Goal increase strength of L LE to improve mobility skills 1* mat exercises x 20 reps 2* standing with equal WB on LE 3* standing bilateral PF x 20 reps with 1 UE support 4* single leg standing with 1 UE support x 20 seconds 5* 2 minute walking test distance of 400'
--- NOTE | 2024-01-06 08:58 | PTOPEVAL1 ---
Assessment and note entered by Pat Hartmann, PT Evaluation Information Assessment Status Evaluation Diagnosis L knee pain Onset Jun 2023 Subjective Information fell on stairs over her dog; x ray -- was told arthritis of knee and need surgery on knee-- have seen ortho ; member of [employer]--doing bicycle for about 5 minutes at a time without any resistance; some arm strengthening with light weights and sitting ball exercises; have had weight loss and want to continue to increase her strength and health; Activity: son and assist with home tasks; use cane for stability and prevent further falls; never cook unless someone is home with her to help her; use cane or wheeled walker for ambulation Reported Pain Level Pain Score Self Report Additional Pain Score Comments pain range of the past week: 0 -10/10; around patella; something loose in there increase pain: up, walking; report standing/ walking tolerance 5 minutes decrease pain: TENS, heat, naproxen have stool to sit on for kitchen tasks Assessment PT Clinical Summary Amanda has the diagnosis of L knee pain. Onset after falling on stairs, tripped over her dog and landed on her L knee. History includes L foot pain/fracture, L knee pain and low back pain. Recent new diagnosis of tachycardia and is under the care of tower equipment installer. LE functional scale rating of 74% limitation in activity level. Walking/standing tolerance of 5 minutes due to knee pain. She has a fear of falling again and uses the cane or wheeled walker. With the evaluation: L knee & hip ROM is WNL and decreased ankle ROM, with decreased strength of LE unable to tolerate weight bearing on L LE in standing; 2 minute walking test distance of 320 with cane. Tenderness with palpation over distal quad tendon. Skilled PT services are indicated for therapeutic exercises on land and in
--- NOTE | 2024-01-21 10:09 | PCPTNOTE ---
Patient no show for today's appointment.
--- NOTE | 2024-02-01 13:55 | PCPTNOTE ---
pt did not show for today's reeval appt; called and left her voice message.
--- NOTE | 2024-02-04 13:01 | PCPTNOTE ---
Pt NS visit today after making appt yesterday.
--- NOTE | 2024-02-10 10:51 | PCPTNOTE ---
No call No show this date. BECKIE
--- NOTE | 2024-02-23 10:11 | PTOPDC ---
Assessment and note entered by Pat Hartmann, PT PT Discharge Assessment Status Discharge - Pt Not Present Diagnosis L knee pain Onset Jun 2023 Subjective Information pt was not seen this date Assessment PT Clinical Summary Amanda has received 4 PT session and did not show for 5 scheduled appointments, from January 05 to today. Therefore, she will be discharged at this time. The goals were not addressed. Plan of Care PT Services Indicated No
== END 2024-02-23 11:08 | disposition home or self-care (01) ==
LOC: ANHPT 10:30
PROVIDERS: PCP Physician Assistant; Visit Provider Physician Assistant
DX: M25.562 Pain in left knee (principal)
CPT/HCPCS: 97110; 97113; 97161; 97530; 99199

== ENCOUNTER 2024-02-08 14:38 | Outpatient (CLI) | payer OTHER, SELFPAY ==
--- NOTE | ~2024-02-08 | MM_ITS ---
EXAMINATION: MM screening rajiv BI w regina HISTORY: Screening mammogram TECHNIQUE: Craniocaudal and mediolateral oblique 3-D tomosynthesis images were obtained and synthetic 2-D images were generated. CAD analysis was submitted and interpreted. COMPARISON: No prior mammogram is available for comparison at this institution. BREAST PARENCHYMAL COMPOSITION: There are scattered areas of fibroglandular density. FINDINGS: There is no evidence of suspicious mass, calcification, or architectural distortion to sugg est malignancy in either breast. IMPRESSION: 1. No mammographic evidence of malignancy. 2. Recommend routine screening mammography in one year. BI-RADS Category 1: Negative Reviewed, dictated and finalized at location A.
== END 2024-02-08 14:39 | disposition home or self-care (01) ==
LOC: ANHIMG 14:39
PROVIDERS: PCP Physician Assistant; Visit Provider Physician Assistant
DX: Z12.31 Encounter for screening mammogram for malignant neoplasm of breast (principal)
CPT/HCPCS: 77063; 77067

== ENCOUNTER 2024-02-25 14:40 | Outpatient (CLI) | payer OTHER, SELFPAY ==
--- NOTE | ~2024-02-25 | US_ITS ---
EXAMINATION: US transvaginal DATE: 02/25/2024 15:28 INDICATION: Left lower quadrant abdominal pain. TECHNIQUE: Multiple transvaginal sonographic images of the pelvis were obtained. COMPARISON: ultrasound 08/06/21 FINDINGS: The uterus is absent. There is no free fluid in the pelvis. The right ovary measures 1.0 x 1.0 x 1.1 cm. The left ovary measures 1.5 x 1.0 x 1.6 cm. There is normal vascular flow in the ovaries. IMPRESSION: 1. Normal ovaries. 2. Hysterectomy. Reviewed, dictated and finalized at location A.
== END 2024-02-25 14:41 | disposition home or self-care (01) ==
PROVIDERS: PCP Physician Assistant; Visit Provider Physician Assistant
DX: R10.32 Left lower quadrant pain (principal); Z90.710 Acquired absence of both cervix and uterus
CPT/HCPCS: 76830

== ENCOUNTER 2024-03-28 10:22 | Emergency (ER) | payer OTHER, SELFPAY ==
[2024-03-28 10:25] VITALS: BP 146/100
[2024-03-28 10:30] VITALS: BP 140/89; PULSE 74; RESP 16; TEMP 36.7; O2SAT 99
--- NOTE | 2024-03-28 10:54 | ED.DENTAL ---
HPI - Dental/Oral General Chief complaint: Dental/Oral Stated complaint: Tooth Ache and Arm Burn Time Seen by Provider: 03/28/24 10:54 Mode of arrival: ambulatory Limitations: no limitations History of Present Illness HPI Narrative: 48-year-old female presents with concern for bilateral lower dental pain. Reports it is problems with those teeth chronically. Reports she has had foul taste in her mouth and started having facial swelling. She reports headache, denies fever problems swallowing. MD Complaint: tooth pain Related Data Home Medications Medication Instructions Recorded Confirmed alprazolam 1 mg tablet 1 mg PO DIRECTED 07/13/20 03/28/24 amlodipine 10 mg tablet 10 mg PO DAILY 07/13/20 03/28/24 buspirone 10 mg tablet 10 mg PO DAILY 07/13/20 03/28/24 clonidine HCl 0.1 mg tablet 0.1 mg PO DAILY 07/13/20 03/28/24 ergocalciferol (vitamin D2) 1,250 1,250 mcg PO DAILY 07/13/20 03/28/24 mcg (50,000 unit) capsule (Vitamin D2) olanzapine 5 mg tablet 5 mg PO DIRECTED 07/13/20 03/28/24 albuterol sulfate 90 mcg/actuation 2 inh inhalation DIRECTED 03/23/22 03/28/24 aerosol inhaler gabapentin 400 mg capsule 1 cap PO DIRECTED 03/23/22 03/28/24 losartan 100 mg tablet 1 tablet PO DAILY 03/23/22 03/28/24 sertraline 50 mg tablet 50 mg PO DAILY 05/24/22 03/28/24 naproxen 500 mg tablet 500 mg PO BID 04/11/23 03/28/24 Allergies Allergy/AdvReac Type Severity Reaction Status Date / Time No Known Allergies Allergy Verified 03/28/24 10:59 Review of Systems Review of Systems: CONSTITUTIONAL: Denies malaise, chills, sweats, or fever. EYES: Denies visual changes ENT: Denies rhinorrhea, congestion, sinus pain, otalgia or sore throat. Reports bilateral lower dental pain CARDIOVASCULAR: Denies chest pain, palpitations RESPIRATORY: Denies cough or dyspnea. SKIN: Denies rash or itching. MUSCULOSKELETAL: Denies myalgia. NEUROLOGIC: Denies numbness, weakness, or headache. All systems reviewed & are unremarkable except as noted in HPI and below PMFSH Past Medical History Medical History Anxiety Arthritis Asthma Bronchitis Depression Emphysema, unspecified GERD (gastroesophageal reflux disease) H/O: HTN (hypertension) Hypercholesteremia Peripheral neuropathy PTSD (post-traumatic stress disorder) Sleep apnea Surgical History Surgical History History of hysterectomy History of tonsillectomy Hx of tubal ligation Family History Family History Mother Hypertension Social History Social History Smoking status: Current every day smoker Alcohol intake: former Comments At time of signature, agree with nursing past medical, surgical, social and family history. There is no relevant family history pertinent to the presenting complaint Exam Narrative: GENERAL: Well-appearing, well-nourished, and in no acute distress. HEAD: Normocephalic, atraumatic. EYES: PERRLA, sclera clear ENT: Nares clear, turbinates pink, no rhinorrhea or epistaxis. Mucous membranes moist. TM pearly kurtz with sharp light reflex bilaterally; no tragal tenderness. Oropharynx without erythema or lesions. Tonsils not enlarged and without exudate. Missing teeth, broken teeth, caries. Mild dural swelling noted bilaterally NECK: Supple. No lymphadenopathy. CHEST: No respiratory distress. Speaks in full sentences. HEART: Regular rate and rhythm. SKIN: Warm, dry, no visible rash. NEURO: Alert and oriented x3. PSYCH: Normal mood and affect Course Course Emergency Course: Patient is aware of diagnosis, understands and agrees to treatment plan. Anticipatory guidance given. Patient agrees to follow-up as directed and is aware of reasons to seek care at the emergency department. Portions of this record ma
== END 2024-03-28 11:10 | disposition home or self-care (01) ==
PROVIDERS: Emergency Provider Nurse Practitioner; PCP Physician Assistant
DX: K08.89 Other specified disorders of teeth and supporting structures (principal); M19.90 Unspecified osteoarthritis, unspecified site; J45.909 Unspecified asthma, uncomplicated; K21.9 Gastro-esophageal reflux disease without esophagitis; I10 Essential (primary) hypertension; E78.00 Pure hypercholesterolemia, unspecified; G62.9 Polyneuropathy, unspecified; F41.9 Anxiety disorder, unspecified; F32.A Depression, unspecified
CPT/HCPCS: 99213; G0463

== ENCOUNTER 2024-07-05 11:08 | Outpatient (CLI) | payer OTHER, SELFPAY ==
--- NOTE | ~2024-07-05 | XR_ITS ---
Right Shoulder Technique: AP and scapular Y views were obtained. Clinical History: Pain Findings: No fracture or dislocation is seen. Osseous alignment is anatomic. The glenohumeral joint i s intact. There is mild AC joint degenerative change. Soft tissues are unremarkable. Impression: Mild AC joint degenerative change. Reviewed, dictated and finalized at [facility]. Impression: Mild AC joint degenerative change.
--- NOTE | ~2024-07-05 | XR_ITS ---
Right wrist Technique: PA, oblique, lateral, and ulnar deviation views were obtained. Clinical History: Pain Findings: No acute fracture or dislocation is seen. Osseous alignment is anatomic. Joint spaces are p reserved. Soft tissues are unremarkable. Impression: Unremarkable right wrist radiographs. Reviewed, dictated and finalized at location . Impression: Unremarkable right wrist radiographs.
--- NOTE | ~2024-07-05 | XR_ITS ---
Right elbow Technique: AP, oblique, and lateral views were obtained. Clinical History: Pain Findings: No acute fracture or dislocation is seen. Osseous alignment is anatomic. Joint spaces are p reserved. There is no displacement of the fat pads, and soft tissues are unremarkable. Impression: Unremarkable radiographs. Reviewed, dictated and finalized at location . Impression: Unremarkable radiographs.
== END 2024-07-05 11:09 | disposition home or self-care (01) ==
PROVIDERS: PCP Physician Assistant; Visit Provider Physician Assistant
DX: M19.011 Primary osteoarthritis, right shoulder (principal); M25.531 Pain in right wrist; M25.521 Pain in right elbow
CPT/HCPCS: 73030; 73080; 73110

== ENCOUNTER 2025-01-05 11:04 | Emergency (ER) | payer OTHER, MEDICAID, SELFPAY ==
[2025-01-05 11:13] VITALS: BP 175/113; PULSE 86; RESP 20; TEMP 37.1; O2SAT 98
[2025-01-05 11:49] LABS: EDCOVIDSCREEN Negative (Negative); EDINFLUASCREEN Negative (Negative); EDINFLUBSCREEN Negative (Negative)
--- NOTE | 2025-01-05 11:50 | ED.URI ---
HPI - URI/Sore Throat General Chief Complaint: Upper Respiratory Infection Stated Complaint: Sinus/Cough Time Seen by Provider: 01/05/25 11:46 Source: patient and RN notes reviewed Mode of arrival: ambulatory Limitations: no limitations History of Present Illness HPI Narrative: 49-year-old female presents with concern for to 3 day history of sinus congestion, drainage, sinus headaches and pressure. Reports cough and postnasal drainage. She reports fever, body aches, fatigue. She has been taking ibuprofen. MD elicited complaint: cough and nasal congestion Related Data Home Medications ?Medication ?Instructions ?Recorded ?Confirmed ?Last Taken ?Type amlodipine 10 mg tablet 10 mg PO DAILY 07/13/20 03/28/24 Unknown History buspirone 10 mg tablet 10 mg PO DAILY 07/13/20 03/28/24 Unknown History ergocalciferol (vitamin D2) 1,250 1,250 mcg PO DAILY 07/13/20 03/28/24 Unknown History mcg (50,000 unit) capsule (Vitamin D2) albuterol sulfate 90 mcg/actuation 2 inh inhalation DIRECTED 03/23/22 03/28/24 Unknown History aerosol inhaler gabapentin 400 mg capsule 1 cap PO DIRECTED 03/23/22 03/28/24 Unknown History losartan 100 mg tablet 1 tablet PO DAILY 03/23/22 03/28/24 Unknown History sertraline 50 mg tablet 50 mg PO DAILY 05/24/22 03/28/24 Unknown History alprazolam 0.5 mg tablet mg 01/05/25 Unknown History clonidine HCl 0.2 mg tablet mg 01/05/25 Unknown History duloxetine 30 mg capsule,delayed mg PO 01/05/25 Unknown History release olanzapine 15 mg tablet mg 01/05/25 Unknown History Allergies Allergy/AdvReac Type Severity Reaction Status Date / Time No Known Allergies Allergy Verified 01/05/25 11:06 Review of Systems Review of Systems: CONSTITUTIONAL: Reports malaise, fever. EYES: Denies visual changes, redness, or discharge. ENT: Reports rhinorrhea, congestion, sinus pain CARDIOVASCULAR: Denies chest pain, palpitations, or edema. RESPIRATORY: Reports cough. Denies dyspnea. GASTROINTESTINAL: Denies abdominal pain, nausea, vomiting, diarrhea SKIN: Denies rash or itching. MUSCULOSKELETAL: Reports myalgia. NEUROLOGIC: Reports headache. All systems reviewed & are unremarkable except as noted in HPI and below PMFSH Past Medical History Medical History Anxiety Arthritis Asthma Bronchitis Depression Emphysema, unspecified GERD (gastroesophageal reflux disease) H/O: HTN (hypertension) Hypercholesteremia Peripheral neuropathy PTSD (post-traumatic stress disorder) Sleep apnea Surgical History Surgical History History of hysterectomy History of tonsillectomy Hx of tubal ligation Family History Family History Mother Hypertension Social History Social History Smoking status: Current every day smoker Alcohol intake: former Comments At time of signature, agree with nursing past medical, surgical, social and family history. There is no relevant family history pertinent to the presenting complaint Exam Narrative: GENERAL: Nontoxic-appearing, well-nourished, and in no acute distress. HEAD: Normocephalic EYES: PERRLA, conjunctivae clear ENT: Nares clear, turbinates edematous and erythematous, clear discharge. Mucous membranes moist. TM pearly kurtz with dull light reflex bilaterally; no tragal tenderness. Oropharynx not erythematous without lesions. Tonsils not enlarged and without exudate, no drooling, no hoarseness, no trismus, uvula midline. NECK: Supple. No lymphadenopathy CHEST: Clear to auscultation, breath sounds equal. No wheezing, rhonchi, rales, or stridor. No respiratory distress, speaks in full sentences. HEART: Regular rate and rhythm. No murmur heard. SKIN: Warm, dry, no rash. NEURO: Alert and oriented x3. PSYCH: Normal mood and affect Course Course Emergency Course: Patient is aware of diagnosis, understands and agrees to treatment plan. Anticipatory guidance given. Patient agrees to follow-up as directed and is aware of reasons to seek care at the emergency department. Portions of this record may have been created with voice recognition software Level of Care: Express Care Visit Vital Signs Vital signs: Vital Signs Temperature 98.7 F 01/05/25 11:13 Pulse Rate 86 01/05/25 11:13 Respiratory Rate 20 01/05/25 11:13 Blood Pressure 175/113 H 01/05/25 11:13 Pulse Oximetry 98 01/05/25 11:13 Oxygen Delivery Room Air 01/05/25 11:13 Temperature 98.7 F 01/05/25 11:13 Pulse Rate 86 01/05/25 11:13 Respiratory Rate 20 01/05/25 11:13 Blood Pressure 175/113 H 01/05/25 11:13 Pulse Oximetry 98 01/05/25 11:13 Oxygen Delivery Room Air 01/05/25 11:13 Reviewed. MDM - URI/Sore Throat MDM Narrative Medical decision making narrative: Differential diagnosis considered: Gonzalez virus, strep pharyngitis, allergic rhinitis, upper respiratory tract infection, sinusitis, rhinosinusitis, nasopharyngitis. viral pharyngitis, otitis media, otitis externa, pneumonia, bronchitis, viral cough syndrome, viral syndrome, and influenza. Exam findings show no acute concerns or changes; patient is non-toxic appearing and is in no distress. Patient is appropriate for outpatient treatment and follow-up. Lab Data Attestation: I reviewed the patient's lab results. Labs: Lab Results 01/05/25 Range/Units 11:20 POC Influenza A Ag Negative (Negative) POC Influenza B Ag Negative (Negative) POC SARS CoV-2 Ag Negative (Negative) Critical Care Time Critical Care Time Critical Care Time: No Discharge Plan Discharge Clinical Impression: Acute viral syndrome Patient Disposition: Home Condition: Stable Instructions: Antibiotic Form, Viral Syndrome (ED) Additional Instructions: -Take strict precautions to prevent the spread of your virus. Be diligent about covering your cough (even when you are alone) and washing your hands frequently. -You may contagious until you have been symptom and/or fever free for 24 hours without fever reducing medicine -Alternate Ibuprofen and Tylenol for pain and fever relief (per package directions) -Drink plenty of fluid - drink fluid with electrolytes such as Gatorade or other oral re-hydration solution. Avoid caffeine, which can make dehydration worse. -Get plenty of rest to help your body heal. -Use a cool mist humidifier for chest and nasal congestion. -Eat RAW honey or use cough drops to ease throat discomfort -Do not smoke or expose children to secondhand smoke -Wash your hands frequently. -Please follow-up with your primary care doctor in the next 1-2 days if your symptoms do not improve. -If you have any worsening of symptoms or any other concerns please go to the ED immediately. -Please take medications as prescribed and continue taking your home medications as usual. Patient Language: Kenyan Prescriptions: New methylprednisolone [Medrol (Reji)] 4 mg tablets,dose pack See Rx Instructions .ROUTE .COMPLEX Qty: 21 0RF Rx Instructions: orally per package directions ipratropium bromide 21 mcg (0.03 %) spray,non-aerosol 2 spray NASAL TID PRN (Reason: nasal drainage) Qty: 30 0RF Rx Instructions: administer into each nostril No Action amlodipine 10 mg tablet 10 mg PO DAILY buspirone 10 mg tablet 10 mg PO DAILY ergocalciferol (vitamin D2) [Vitamin D2] 1,250 mcg (50,000 unit) capsule 1,250 mcg PO DAILY tramadol 50 mg tablet 50 mg PO Q6H PRN (Reason: pain) Qty: 20 0RF alprazolam 0.5 mg tablet clonidine HCl 0.2 mg tablet olanzapine 15 mg tablet duloxetine 30 mg capsule,delayed release(DR/EC) PO gabapentin 400 mg capsule 1 cap PO DIRECTED albuterol sulfate 90 mcg/actuation HFA aerosol inhaler 2 inh INHALATION DIRECTED losartan 100 mg tablet 1 tablet PO DAILY sertraline 50 mg tablet 50 mg PO DAILY Follow-up/Referrals: Janie,DARLINE Kee [Primary Care Provider] - Stand Alone Forms: Work/School Release IP Time of Disposition: 12:00
== END 2025-01-05 12:05 | disposition home or self-care (01) ==
PROVIDERS: Emergency Provider Nurse Practitioner; PCP Physician Assistant
DX: B34.9 Viral infection, unspecified (principal); Z20.822 Contact with and (suspected) exposure to COVID-19; F17.200 Nicotine dependence, unspecified, uncomplicated; I10 Essential (primary) hypertension; E78.00 Pure hypercholesterolemia, unspecified; G62.9 Polyneuropathy, unspecified; J43.9 Emphysema, unspecified; J45.909 Unspecified asthma, uncomplicated; M19.90 Unspecified osteoarthritis, unspecified site; K21.9 Gastro-esophageal reflux disease without esophagitis; F41.9 Anxiety disorder, unspecified; F32.A Depression, unspecified
CPT/HCPCS: 87426; 87804; 99213; G0463

== ENCOUNTER 2025-03-16 09:09 | Emergency (ER) | payer OTHER, MEDICAID, SELFPAY ==
[2025-03-16 09:18] VITALS: BP 149/97; PULSE 92; RESP 20; TEMP 36.9; O2SAT 97
--- NOTE | 2025-03-16 09:40 | ED.DENTAL ---
HPI - Dental/Oral General Chief complaint: Dental/Oral Stated complaint: Dental Pain/ Rash Time Seen by Provider: 03/16/25 09:40 Source: patient Mode of arrival: ambulatory Limitations: no limitations History of Present Illness HPI Narrative: 49-year-old female presents with complaint of right lower dental pain for the past 2-3 days. Patient is tearful. Patient reports she recently got dental Insurance and will finally will be able to have teeth removed and dentures fitted. also reports itchy bug bites to left arm and left lower leg. Patient concern for bedbugs that she was exposed to at work. all systems reviewed and negative except as noted above. Related Data Home Medications ?Medication ?Instructions ?Recorded ?Confirmed ?Last Taken ?Type amlodipine 10 mg tablet 10 mg PO DAILY 07/13/20 03/28/24 Unknown History buspirone 10 mg tablet 10 mg PO DAILY 07/13/20 03/28/24 Unknown History ergocalciferol (vitamin D2) 1,250 1,250 mcg PO DAILY 07/13/20 03/28/24 Unknown History mcg (50,000 unit) capsule (Vitamin D2) albuterol sulfate 90 mcg/actuation 2 inh inhalation DIRECTED 03/23/22 03/28/24 Unknown History aerosol inhaler gabapentin 400 mg capsule 1 cap PO DIRECTED 03/23/22 03/28/24 Unknown History losartan 100 mg tablet 1 tablet PO DAILY 03/23/22 03/28/24 Unknown History sertraline 50 mg tablet 50 mg PO DAILY 05/24/22 03/28/24 Unknown History alprazolam 0.5 mg tablet mg 01/05/25 Unknown History clonidine HCl 0.2 mg tablet mg 01/05/25 Unknown History duloxetine 30 mg capsule,delayed mg PO 01/05/25 Unknown History release olanzapine 15 mg tablet mg 01/05/25 Unknown History Allergies Allergy/AdvReac Type Severity Reaction Status Date / Time No Known Allergies Allergy Verified 01/05/25 11:06 Review of Systems Review of Systems: CONSTITUTIONAL: Denies fever, chills, or sweats. EYES: Denies visual changes, redness, or discharge. ENT: Denies rhinorrhea, congestion, sore throat, or otalgia. Reports dental pain. CARDIOVASCULAR: Denies chest pain, palpitations, or edema. RESPIRATORY: Denies cough or dyspnea. GASTROINTESTINAL: Denies abdominal pain, nausea, vomiting, or diarrhea. GENITOURINARY: Denies dysuria or hematuria. SKIN: Reports itchy bug bites MUSCULOSKELETAL: Denies back pain, joint pain, or myalgia. NEUROLOGIC: Denies headache, numbness, or weakness. PSYCHIATRIC: Denies anxiety or depression. All other systems reviewed are negative, except as documented in HPI. [facility] Past Medical History Medical History Anxiety Arthritis Asthma Bronchitis Depression Emphysema, unspecified GERD (gastroesophageal reflux disease) H/O: HTN (hypertension) Hypercholesteremia Peripheral neuropathy PTSD (post-traumatic stress disorder) Sleep apnea Surgical History Surgical History History of hysterectomy History of tonsillectomy Hx of tubal ligation Family History Family History Mother Hypertension Social History Social History Smoking status: Current every day smoker Alcohol intake: former Comments At time of signature, agree with nursing past medical, surgical, social and family history. There is no relevant family history pertinent to the presenting complaint. Exam Narrative: GENERAL: This is a well-nourished, well-developed patient, in no apparent distress. HEAD: normocephalic, atraumatic. EYES: PERRL. Sclera clear/white. Vision is grossly intact. EARS: External ears normal NOSE: External nose normal MOUTH: tooth #27 decayed, broken down to gumline. mild erythema to gums without abscess NECK: Neck supple, non-tender without lymphadenopathy, masses or thyromegaly. CARDIOVASCULAR: Regular rate and rhythm without murmurs, gallops, or rubs. RESPIRATORY: Clear to auscultation. Breath sounds equal bilaterally. No wheezes, rales, or rhonchi. SKIN: warm, Dry, intact with no suspicious lesions or rash, good texture and turgor. erythematous scabbed lesion to left forearm and two to left lower leg. NEURO: awake, alert, and oriented to person, place and time. There were no obvious focal neurologic abnormalities. EXTREMITIES: No joint tenderness, effusion, or edema noted. Course Course Level of Care: Express Care Visit Vital Signs Vital signs: Vital Signs Temperature 36.9 C 03/16/25 09:18 Pulse Rate 92 03/16/25 09:18 Respiratory Rate 20 03/16/25 09:18 Blood Pressure 149/97 H 03/16/25 09:18 Pulse Oximetry 97 03/16/25 09:18 Oxygen Delivery Room Air 03/16/25 09:18 Temperature 36.9 C 03/16/25 09:18 Pulse Rate 92 03/16/25 09:18 Respiratory Rate 20 03/16/25 09:18 Blood Pressure 149/97 H 03/16/25 09:18 Pulse Oximetry 97 03/16/25 09:18 Oxygen Delivery Room Air 03/16/25 09:18 Reviewed MDM - Dental/Oral MDM Narrative Medical decision making narrative: patient prescribed amoxicillin for dental pain. Recommend follow-up with dentist. Insect bites not concerning for bedbugs. Not infected. Will treat with triamcinolone. Patient is well-appearing, nontoxic. Discharge Plan Discharge Clinical Impression: Dental infection, Insect bite Patient Disposition: Home Condition: Stable Instructions: Antibiotic Form, Toothache (ED) Additional Instructions: take medications as prescribed. Tramadol may make you drowsy. Do not drive while taking this medication. Follow-up with a dentist at next available appointment. Patient Language: [place]ib[place]ian Prescriptions: New tramadol 50 mg tablet 50 mg PO Q6H PRN (Reason: pain) Qty: 12 0RF amoxicillin 875 mg tablet 875 mg PO Q12H 10 Days Qty: 20 0RF triamcinolone acetonide 0.1 % cream 1 applic topical BID PRN (Reason: insect bite) Qty: 30 0RF No Action amlodipine 10 mg tablet 10 mg PO DAILY buspirone 10 mg tablet 10 mg PO DAILY ergocalciferol (vitamin D2) [Vitamin D2] 1,250 mcg (50,000 unit) capsule 1,250 mcg PO DAILY tramadol 50 mg tablet 50 mg PO Q6H PRN (Reason: pain) Qty: 20 0RF alprazolam 0.5 mg tablet clonidine HCl 0.2 mg tablet olanzapine 15 mg tablet duloxetine 30 mg capsule,delayed release(DR/EC) PO methylprednisolone [Medrol (Reji)] 4 mg tablets,dose pack See Rx Instructions .ROUTE .COMPLEX Qty: 21 0RF Rx Instructions: orally per package directions ipratropium bromide 21 mcg (0.03 %) spray,non-aerosol 2 spray NASAL TID PRN (Reason: nasal drainage) Qty: 30 0RF Rx Instructions: administer into each nostril gabapentin 400 mg capsule 1 cap PO DIRECTED albuterol sulfate 90 mcg/actuation HFA aerosol inhaler 2 inh INHALATION DIRECTED losartan 100 mg tablet 1 tablet PO DAILY sertraline 50 mg tablet 50 mg PO DAILY Follow-up/Referrals: Janie,DARLINE Kee [Primary Care Provider] - Stand Alone Forms: Work/School Release IP Time of Disposition: 09:55
== END 2025-03-16 10:03 | disposition home or self-care (01) ==
PROVIDERS: Emergency Provider Nurse Practitioner Family; PCP Physician Assistant
DX: S40.862A Insect bite (nonvenomous) of left upper arm, initial encounter (principal); S80.862A Insect bite (nonvenomous), left lower leg, initial encounter; K08.89 Other specified disorders of teeth and supporting structures; I10 Essential (primary) hypertension; J43.9 Emphysema, unspecified; F17.200 Nicotine dependence, unspecified, uncomplicated; K04.7 Periapical abscess without sinus; W57.XXXA Bitten or stung by nonvenomous insect and other nonvenomous arthropods, initial encounter
CPT/HCPCS: 99213; G0463

== ENCOUNTER 2025-04-27 08:35 | Emergency (ER) | payer SELFPAY ==
[2025-04-27 08:43] VITALS: BP 176/97; PULSE 68; RESP 18; TEMP 36.8; O2SAT 98
--- NOTE | 2025-04-27 09:29 | ED_ITS ---
HPI - Dental/Oral General Chief complaint: Dental/Oral Stated complaint: tooth / dental infection Time Seen by Provider: 04/27/25 09:00 Source: patient and RN notes reviewed Mode of arrival: ambulatory Limitations: no limitations History of Present Illness HPI Narrative: 49-year-old female presents Express Care complaining of right lower dental pain. Patient says she has not seen a dentist yet the reports history of dental abscess. Patient reports redness and swelling to her right lower mouth. Patient denies any breathing problems, difficulty swallowing, locked jaw, fevers, body aches, chills, or any other symptoms. Related Data Home Medications ?Medication ?Instructions ?Recorded ?Confirmed ?Last Taken ?Type amlodipine 10 mg tablet 10 mg PO DAILY 07/13/20 03/28/24 Unknown History losartan 100 mg tablet 1 tablet PO DAILY 03/23/22 03/28/24 Unknown History alprazolam 0.5 mg tablet 0.5 mg PO 01/05/25 Unknown History clonidine HCl 0.2 mg tablet mg 01/05/25 Unknown History Allergies Allergy/AdvReac Type Severity Reaction Status Date / Time No Known Allergies Allergy Verified 04/27/25 08:54 Review of Systems Review of Systems: CONSTITUTIONAL: Denies fever, chills, or sweats. EYES: Denies visual changes, redness, or discharge. ENT: Denies rhinorrhea, congestion, sore throat, or otalgia. MOUTH: Positive for dental pain and swelling. CARDIOVASCULAR: Denies chest pain, palpitations, or edema. RESPIRATORY: Denies cough or dyspnea. GASTROINTESTINAL: Denies abdominal pain, nausea, vomiting, or diarrhea. GENITOURINARY: Denies dysuria or hematuria. SKIN: Denies rash or itching. MUSCULOSKELETAL: Denies back pain, joint pain, or myalgia. NEUROLOGIC: Denies headache, numbness, or weakness. PSYCHIATRIC: Denies anxiety or depression. All other systems reviewed are negative, except as documented in HPI. COUNT INCLUDES THE [facility] Past Medical History Medical History Depression Anxiety PTSD (post-traumatic stress disorder) Arthritis GERD (gastroesophageal reflux disease) Sleep apnea Bronchitis Asthma Emphysema, unspecified Hypercholesteremia Peripheral neuropathy H/O: HTN (hypertension) Surgical History Surgical History Hx of tubal ligation History of hysterectomy History of tonsillectomy Family History Family History Mother Hypertension Social History Social History Smoking status: Current every day smoker Alcohol intake: former Comments At the time of my signature, I reviewed and agree with the nursing past medical, surgical, social, and family history. There is no relevant family history pertinent to the patient complaint. Exam Narrative: GENERAL: This is a well-nourished, well-developed adult, in no apparent distress. They are non ill-appearing, nontoxic appearing. HEAD: normocephalic, atraumatic. EYES: Sclera clear/white. Conjunctiva normal. Vision is grossly intact. Extraocular movements intact EARS: External ears normal, Hearing grossly intact. NOSE: External nose normal OROPHARYNX: Missing teeth, gross tooth decay, dental fillings present. Right lower gum erythematous, no area of fluctuance, no exudate, tender to palpate. No pain or swelling of the tongue. Tongue is normal. No trismus THROAT: Mucous membranes moist, posterior pharynx clear, without erythema or swelling. Uvula midline. NECK: Neck supple, CARDIOVASCULAR: Regular rate and rhythm RESPIRATORY: Respiratory rate normal, respiratory effort nonlabored, no respiratory distress GASTROINTESTINAL: Abdomen soft, non-tender, nondistended. Bowel sounds are active. No hepato-splenomegaly, or palpable masses. No guarding. SKIN: warm, Dry, intact with no suspicious lesions or rash, good texture and turgor. NEURO: awake, alert, and oriented to person, place and time. There were no obvious focal neurologic abnormalities. Course Course Emergency Course: Portions of this record may have been created with voice recognition software Level of Care: Express Care Visit Vital Signs Vital signs: Vital Signs Temperature 98.2 F 04/27/25 08:43 Pulse Rate 68 04/27/25 08:43 Respiratory Rate 18 04/27/25 08:43 Blood Pressure 176/97 H 04/27/25 08:43 Pulse Oximetry 98 04/27/25 08:43 Oxygen Delivery Room Air 04/27/25 08:43 Temperature 98.2 F 04/27/25 08:43 Pulse Rate 68 04/27/25 08:43 Respiratory Rate 18 04/27/25 08:43 Blood Pressure 176/97 H 04/27/25 08:43 Pulse Oximetry 98 04/27/25 08:43 Oxygen Delivery Room Air 04/27/25 08:43 Reviewed MDM - Dental/Oral MDM Narrative Medical decision making narrative: Patient likely has dental infection developing, no obvious abscess formation identified. Patient recently treated with amoxicillin, will treat her with penicillin. Patient requesting something for severe pain as she rates her pain 7/10 currently. Will Give her a short course of tramadol as needed for severe pain. Will also prescribe viscous lidocaine. Discussed physical exam findings. Advised supportive measures and signs/symptoms to go to the ER. Pt is appropriate for outpt treatment and f/u. Differential Diagnosis Differential diagnosis: Likely gingival abscess, dental caries, toothache and dental abscess Critical Care Time Critical Care Time Critical Care Time: No Discharge Plan Discharge Clinical Impression: Dental infection Patient Disposition: Home Condition: Stable Instructions: Antibiotic Form, Toothache (ED) Additional Instructions: Take the antibiotics as directed. Take Tylenol as needed for pain. Follow directions on the bottle. Take tramadol as directed for pain. Do Not drive or operate machinery while taking tramadol as it may make you drowsy. You may use viscous lidocaine as needed for pain in your mouth. Use a Q-tip and apply directly to the affected area. [place] your teeth and floss at least 2 times a day. You may use mouthwash after each brushing as well. Follow-up with dentist next week. If you developed worsening swelling, fevers, difficulty swallowing or breathing, difficulty opening her jaw, swelling under the tongue, or any other concerns please go to the ER immediately. Patient Language: Citizen Of [place] Prescriptions: New penicillin V potassium 500 mg tablet 500 mg PO QID 10 Days Qty: 40 0RF tramadol 50 mg tablet 50 mg PO Q6H PRN (Reason: pain) Qty: 10 0RF lidocaine HCl [Lidocaine Viscous] 2 % solution 1 applic mucous membrane TID PRN (Reason: pain) Qty: 100 0RF No Action amlodipine 10 mg tablet 10 mg PO DAILY alprazolam 0.5 mg tablet 0.5 mg PO clonidine HCl 0.2 mg tablet losartan 100 mg tablet 1 tablet PO DAILY Follow-up/Referrals: Janie,DARLINE Kee [Primary Care Provider] - Time of Disposition: 09:12
== END 2025-04-27 09:25 | disposition home or self-care (01) ==
PROVIDERS: PCP Physician Assistant
DX: K04.7 Periapical abscess without sinus (principal); I10 Essential (primary) hypertension; E78.00 Pure hypercholesterolemia, unspecified; K21.9 Gastro-esophageal reflux disease without esophagitis; J45.909 Unspecified asthma, uncomplicated; G62.9 Polyneuropathy, unspecified; J43.9 Emphysema, unspecified; F41.9 Anxiety disorder, unspecified
CPT/HCPCS: 99213; G0463

== ENCOUNTER 2025-08-22 08:27 | Emergency (ER) | payer SELFPAY ==
--- NOTE | 2025-08-22 08:33 | ED.DENTAL ---
HPI - Dental/Oral General Chief complaint: Dental/Oral Stated complaint: Dental Time Seen by Provider: 08/22/25 08:30 Source: patient Mode of arrival: ambulatory Limitations: no limitations History of Present Illness HPI Narrative: Amanda is a 50 year old female patient presenting to the clinic today with c/o dental pain x3 days. She reports she is having swelling and pain to the left lower jaw as well as some discomfort the the right lower jaw. History of dental abscess in the past. Needs a lot of dental work but can afford the work to be done. Denies any fever, chills, or body aches. Has been taking ibuprofen for the pain. Patient reporting that the abscess busted last night and she was having pus and blood in her mouth.. Rates pain 12/04 currently. Related Data Home Medications ?Medication ?Instructions ?Recorded ?Confirmed ?Last Taken ?Type alprazolam 0.5 mg tablet 0.5 mg PO 01/05/25 Unknown History Allergies Allergy/AdvReac Type Severity Reaction Status Date / Time No Known Allergies Allergy Verified 08/22/25 08:41 Review of Systems Review of Systems: Pertinent positives per HPI. Patient denies any fever, chills, rash, headache, visual changes, dizziness, cough, runny nose, sore throat, shortness of breath, chest pain, palpitations, nausea, vomiting, diarrhea, constipation, abdominal pain, or any urinary issues. [facility] Past Medical History Medical History Depression Anxiety PTSD (post-traumatic stress disorder) Arthritis GERD (gastroesophageal reflux disease) Sleep apnea Bronchitis Asthma Emphysema, unspecified Hypercholesteremia Peripheral neuropathy H/O: HTN (hypertension) Surgical History Surgical History Hx of tubal ligation History of hysterectomy History of tonsillectomy Family History Family History Mother Hypertension Social History Social History Smoking status: Current every day smoker Alcohol intake: former Comments At the time of my signature, I reviewed and agree with the nursing past medical, surgical, social, and family history. There is no relevant family history pertinent to the patient complaint. Exam Narrative: General: Well-developed, well nourished, in no apparent distress Head: Normocephalic, atraumatic Eyes: Pupils equally round and reactive to light bilaterally, EOM intact, sclera and conjunctive clear, no discharge, lids normal Ears: TMs intact and clear, ear canals clear, no drainage, grossly hearing normal. Nose: Nares patent, no discharge, no inflammation, no sinus tenderness. Mouth: Oropharynx without lesions or masses, MMM. Multiple dental decay/poor dentition with the tenderness and swelling to the left 1st molar. No active discharge noted. Neck: Supple, trachea midline, no enlargement of anterior or posterior cervical nodes, no thyroid masses or goiter palpable. Cardio: Regular rate and rhythm, s1 and s2 normal, no murmur appreciated. Resp: Clear to auscultation bilaterally anteriorly and posteriorly, no rhonchi, rales, wheezing or rubs Course Course Emergency Course: Portions of this record may have been created with voice recognition software. Level of Care: Express Care Visit Vital Signs Vital signs: Vital Signs Temperature 36.6 C 08/22/25 08:35 Pulse Rate 62 08/22/25 08:35 Respiratory Rate 18 08/22/25 08:35 Blood Pressure 157/96 H 08/22/25 08:35 Pulse Oximetry 99 08/22/25 08:35 Oxygen Delivery Room Air 08/22/25 08:35 Temperature 36.6 C 08/22/25 08:35 Pulse Rate 62 08/22/25 08:35 Respiratory Rate 18 08/22/25 08:35 Blood Pressure 157/96 H 08/22/25 08:35 Pulse Oximetry 99 08/22/25 08:35 Oxygen Delivery Room Air 08/22/25 08:35 Vital signs reviewed MDM - Dental/Oral MDM Narrative Medical decision making narrative: At the time of visit patient is resting comfortably on the exam table. Patient appears to be nontoxic. C/o dental pain x3 days. She reports she is having swelling and pain to the left lower jaw as well as some discomfort the the right lower jaw. History of dental abscess in the past. Needs a lot of dental work but can afford the work to be done. Patient reporting that the abscess busted last night and she was having pus and blood in her mouth. Denies any fever, chills, or body aches. Has been taking ibuprofen for the pain. Rates pain 3/10 currently. On exam patient has multiple dental decay/poor dentition with the tenderness and swelling to the left 1st molar. No active discharge noted. Plan: I suspect patient has a dental infection. Prescription for Augmentin was sent to the pharmacy. Supportive measures were discussed with the patient and they voiced understanding discharge instructions and agrees to treatment plan. Return precautions reviewed Differential Diagnosis Differential diagnosis: Likely gingival abscess, dental caries, toothache, dental abscess, fracture of tooth and aphthous ulcer Discharge Plan Discharge Clinical Impression: Dental infection Patient Disposition: Home Condition: Stable Instructions: Antibiotic Form, Dental Abscess (ED) Additional Instructions: Take medications as prescribed-Augmentin Increase fluids and stay well hydrated May take Tylenol/Motrin as needed for pain or fever May apply Orajel to the affected area to help alleviate pain May apply warm or cool compress to the affected area to help alleviate pain Follow-up with your dentist as soon as possible Patient Language: [place] Prescriptions: New amoxicillin-pot clavulanate 875-125 mg tablet 1 tablet PO Q12H 10 Days Qty: 20 0RF No Action alprazolam 0.5 mg tablet 0.5 mg PO Follow-up/Referrals: Janie,DARLINE Kee [Primary Care Provider, Family Practice] Stand Alone Forms: Work/School Release IP Time of Disposition: 08:39 Quality NIHSS Nursing Documentation ED NIHSS nursing documentation: reviewed/agree
[2025-08-22 08:35] VITALS: BP 157/96; PULSE 62; RESP 18; TEMP 36.6; O2SAT 99
== END 2025-08-22 08:50 | disposition home or self-care (01) ==
PROVIDERS: Emergency Provider Nurse Practitioner Family; PCP Physician Assistant
DX: K04.7 Periapical abscess without sinus (principal); J43.9 Emphysema, unspecified; I10 Essential (primary) hypertension; F17.200 Nicotine dependence, unspecified, uncomplicated
CPT/HCPCS: 99213; G0463